=== PATIENT | female | born 1965 | race Caucasian/White ===

== ENCOUNTER 2022-10-01 15:29 | Outpatient (AMB) | payer MEDICARE, SELFPAY ==
[2022-10-01 15:38] VITALS: BP 122/80; PULSE 103; O2SAT 99; BMI 30.5
--- NOTE | 2022-10-01 15:38 | MHC.PC.OV ---
Vital Signs 10/01/22 15:38 Height 5 ft 11 in Weight 219 lb BMI 30.5 BP 122/80 Blood Pressure Location Lt brachial Position Sitting Pulse 103 H Pulse Source Pulse Oximeter Pulse Oximetry (%) 99 Oxygen Delivery Method Room Air Intake Visit Reasons: 4m F/U lumbar DDD, OA, insomnia Accompanied by: Self / Same As Patient Allergies citalopram [Celexa] Allergy (Unknown, Verified 02/01/23 16:48) Unknown ropinirole Allergy (Unknown, Verified 02/01/23 16:48) increased numbness of feet, increased back pains Medication List - Last Reconciled 02/03/23 by Bill Vega MD cyclobenzaprine 10 mg PO TID PRN 30 days oxycodone-acetaminophen 10-325 mg Take 1 to 1.5 tablets orally QD PRN for severe pain 30 days tramadol 50 mg PO BID PRN 30 days Tobacco use date assessed: 10/01/22 Dental Screening Dental Screen Date: 10/01/22 Did you have a dental visit in the last 12 months?: No Was dental information given to patient?: No HPI 4m F/U lumbar DDD, OA, insomnia HPI Details Patient comes in today for her follow up visit States that she continues to experience chronic neck and low back pain Notes that her current muscle relaxant Tizanidine does not seem to be helping as much and would like to see if she can be switched over back to Cyclobenzaprine States that she has also been experiencing increased sinus congestion and some sinus pain lately - think she might be coming down with a sinus infection Relates (+) on and off headaches but denies any fever or sore throat; denies any dizziness Denies any chest pains lately; still has on and of dyspnea, mostly with exertion States that she has also been coughing on and off since she contracted COVID a couple of months ago - cough is mostly nonproductive and states that most of other COVID related symptoms cleared lately except for her cough No nausea/vomiting, no abdominal pain No change in bowel habits noted Needs her Tramadol Rx refilled PFSH Medical History Right foot pain Disc disease, degenerative, cervical Obesity (BMI 30-39.9) Smoker Anxiety Insomnia Primary osteoarthritis of left knee Allergic rhinitis Palpitations Lumbar disc disease with radiculopathy Lumbar degenerative disc disease Surgical History No pertinent past surgical history Family History Father CVD (cardiovascular disease) Hypertension Mother Diabetes Cancer Social History Housing: House Alcohol intake: never Patient Tobacco Use Status: Current everyday Tobacco user Tobacco use type: Cigarette Cigarette Packs Per Day: 1 Cigarettes Per Day: 20 e-Cigarette/Vaping Use: Never Used Second Hand Smoke Exposure: Yes service: No Current occupational status: disabled Cognitive needs: No Hearing needs: No Vision needs: Yes (glasses) Questionnaire PHQ-9 Over the last 2 weeks, how often have you been bothered by any of the following problems? 1. Little interest or pleasure in doing things: not at all 2. Feeling down, depressed, or hopeless: not at all 3. Trouble falling or staying asleep, or sleeping too much: not at all 4. Feeling tired or having little energy: not at all 5. Poor appetite or overeating: not at all 6. Feeling bad about yourself - or that you are a failure or have let yourself or your family down: not at all 7. Trouble concentrating on things, such as reading the newspaper or watching television: not at all 8. Moving or speaking so slowly that other people could have noticed. Or the opposite - being so fidgety or restless that you have been moving around a lot more than usual: not at all 9. Thoughts that you would be better off or of hurting yourself in some way: not at all Total score: 0 Depression Screening Interpretation: Negative 05247 - PHQ-9 Billing: Yes Source: Developed by Drs. Liam Anthony, Dominique Fisher, Rusty Toribio and colleagues, with an educational fernando from [employer]. Thrive Questionnaire Date Thrive assessed: 10/01/22 I am a: Patient What is your living situation today?: I have a steady place to live Within the past 12 months, did the food you bought not last and you didn't have the money to get more?: Never true Within the past 12 months, did you worry whether your food would run out before you got money to buy more?: Never true Do you have trouble paying for medicines?: No Do you have trouble getting transportation to medical appointments?: No Do you have trouble paying your heating and electricity bill?: No Do you have trouble taking care of your child, family member or friend?: No Do you have trouble with day-to-day activities such as bathing, preparing meals, shopping, managing finances, etc.?: No Are you currently unemployed and looking for a job?: No Are you interested in more education?: No Currently or been in a relationship where the following occur: no concerns reported AUDIT C Alcohol Use Questionnaire (AUDIT-C) 1. How often do you have a drink containing alcohol?: Never 3. How often do you have six or more drinks on one occasion?: Never Total Score: 0 Score Reviewed/Action Taken: Yes ARMANDO-7 AMB Questionnaire ARMANDO-7 Date ARMANDO - 7 assessed: 10/01/22 Feeling nervous, anxious, or on edge: 0 = Not at all Not being able to stop or control worryin = Not at all Worrying too much about different things: 0 = Not at all Trouble relaxin = Not at all Being so restless that it is hard to sit still: 0 = Not at all Becoming easily annoyed or irritable: 0 = Not at all Feeling afraid as if something awful might happen: 0 = Not at all Total ARMANDO-7 score (0-4 normal; 5-9 mild; 10-14 moderate; 15-21 severe): 0 Source: Developed by Drs. Liam Anthony, Dominique Fisher, Rusty Toribio and colleagues, with an educational fernando from [employer]. Review of Systems Const Denies chills, Reports fatigue, Denies fever(s) and Reports headache(s) (on and off) ENT Denies dysphagia, Denies dizziness, Denies otalgia, Reports headache(s) (on and off), Reports nasal congestion, Reports neck pain, Denies odynophagia, Reports sinus pain and Denies sore throat Card Reports chest pain (on and off; occurring much less often than before), Denies palpitations and Reports dyspnea on exertion (mild) Resp Denies chest congestion, Reports cough (on and off, non-productive), Reports dyspnea on exertion (mild) and Denies wheezing GI Denies abdominal pain, Denies constipation, Denies dysphagia, Denies heartburn, Denies diarrhea, Denies nausea, Denies odynophagia and Denies vomiting Denies nocturia and Denies dysuria Musc Reports back pain (over the lumbar spine - chronic), Reports arthralgias (multiple joints, including left knee and ankles; left knee getting worse) and Reports neck pain Neuro Denies dizziness and Reports headache(s) (on and off) Endo Reports fatigue and Denies palpitations Aller/Immun Denies wheezing Physical exam (Primary Care) Vital Signs: Last Vital Signs Pulse 103 H 10/01/22 15:38 BP 122/80 10/01/22 15:38 Pulse Ox 99 10/01/22 15:38 Oxygen Delivery Method Room Air 10/01/22 15:38 BMI result Body Mass Index 30.5 Tobacco/Smoking Status: Tobacco use Status Tobacco use date assessed 10/01/22 10/01/22 15:45 Patient Tobacco Use Status Current everyday Tobacco 10/01/22 15:45 Tobacco use type Cigarette 10/01/22 15:45 e-Cigarette/Vaping Use Never Used 10/01/22 15:45 PHQ-9: PHQ-9 Score PHQ-9: Total score 0 10/01/22 16:20 Depression Screening Interpretation: Negative Thrive Assessment: Date of Thrive Assessment Date Thrive assessed 10/01/22 10/01/22 15:45 Currently or been in a relationship where the following occur: no concerns reported Const General: no acute distress and alert HENMT Ears: TM's normal bilaterally and EAC's normal Face and sinus: Yes sinus tenderness (bilaterally) Throat: Yes posterior oropharynx normal and Yes tonsils normal (no TP congestion) Neck Neck: Yes no lymphadenopathy and Yes tender Resp Auscultation: no crackles, no rales, rhonchi (scattered bilaterally) and no wheezes Cardio Rate: regular rate Rhythm: regular rhythm Heart sounds: no murmurs GI Palpation (GI): Soft to palpation, nontender and No hepatosplenomegaly present Auscultation: normal bowel sounds Back/Spine/Pelvis Cervical Spine: Cervical spine tenderness Thoracic/Lumbar Spine: lumbar spinal tenderness Skin Rashes: no rashes Extrem General: Yes no clubbing, cyanosis or edema Left upper extremity: shoulder/upper arm Details: tenderness Location: of the A-C joint Right lower extremity: hip/thigh Details: tenderness Location: of the hip Left lower extremity: knee Details: tenderness (increasing) Assessment and Plan Assessment & Plan (1) Sinusitis: Qualifiers: Chronicity: acute Recurrence: non-recurrent Sinusitis location: unspecified location Qualified Code(s): J01.90 - Acute sinusitis, unspecified Plan: Will send patient for sinus x-rays LAKESHIA for further evaluation Advised that if her x-rays show findings suggestive of chronic sinusitis, will start her on empiric Abx Tx for at least 10 to 14 days (2) Lumbar disc disease with radiculopathy: Code(s): M51.16 - Intervertebral disc disorders with radiculopathy, lumbar region Plan: Reinforced activity and weight-lifting restrictions Continue Tramadol 50 mg BID PRN (Rx refilled) and Oxycodone-Acetaminophen 5-325 mg 1 to 1.5 tablets once a day only as needed for increased pain (3) Disc disease, degenerative, cervical: Code(s): M50.30 - Other cervical disc degeneration, unspecified cervical region Plan: Will switch her back from Tizanidine to Cyclobenzaprine 10 mg TID PRN (4) Primary osteoarthritis of left knee: Code(s): M17.12 - Unilateral primary osteoarthritis, left knee Plan: Has been referred to [facility] in [place], per her request, for orthopedic consultation regarding her increasing/worsening knee pain a few months ago but she has not been seen yet (5) Palpitations: Code(s): R00.2 - Palpitations Plan: Patient has been advised to see cardiology for further evaluation of her symptoms a few times in the past but she declined as she does not have any secondary insurance coverage outside of Medicare States that she still owes money to both [facility] and [facility] for some procedures and tests done over the past couple of years and is still trying to pay them off States that she will call for referral if she feels she is ready to do so but has noticed that her chest/heart symptoms seem to have subsided somewhat since her bout with COVID a couple of months ago - is not sure why (6) Allergic rhinitis: Qualifiers: Allergic rhinitis seasonality: seasonal Allergic rhinitis trigger: unspecified Qualified Code(s): J30.2 - Other seasonal allergic rhinitis Plan: Has mostly spring allergies and takes OTC allergy meds as needed (7) Insomnia: Qualifiers: Insomnia type: unspecified Qualified Code(s): G47.00 - Insomnia, unspecified Plan: Sleep hygiene reinforced (8) Anxiety: Code(s): F41.9 - Anxiety disorder, unspecified Plan: Used to take Lorazepam but states that she has been doing better lately and has not had to take her Rx in a while now (9) Smoker: Code(s): F17.200 - Nicotine dependence, unspecified, uncomplicated Plan: Counseled again on smoking cessation (10) Obesity (BMI 30-39.9): Code(s): E66.9 - Obesity, unspecified Plan: Reinforced diet/exercise as tolerated/lose weight Plan Follow up in 4 months Orders: Orders XR sinus min 3V 10/01/22 J32.9 - Chronic sinusitis, unspecified Medications: Refilled tramadol 50 mg PO BID PRN 60 tabs 0RF pain 30 days cyclobenzaprine STOP Tizanidine 10 mg PO TID PRN 90 tabs 1RF muscle spasm 30 days M50.30 - Other cervical disc degeneration, unspecified cervical region Coding Level of Care Code Est Pt Level 3 (54292) Diagnoses Acute non-recurrent sinusitis, unspecified location J01.90 Chronicity: acute Recurrence: non-recurrent Sinusitis location: unspecified location Lumbar disc disease with radiculopathy M51.16 Disc disease, degenerative, cervical M50.30 Primary osteoarthritis of left knee M17.12 Palpitations R00.2 Seasonal allergic rhinitis, unspecified trigger J30.2 Allergic rhinitis seasonality: seasonal Allergic rhinitis trigger: unspecified Insomnia, unspecified type G47.00 Insomnia type: unspecified Anxiety F41.9 Smoker F17.200 Obesity (BMI 30-39.9) E66.9
== END 2022-10-01 16:31 | disposition home or self-care (01) ==
PROVIDERS: PCP Internal Medicine; Visit Provider Internal Medicine
DX: J01.90 Acute sinusitis, unspecified (principal); M51.16 Intervertebral disc disorders with radiculopathy, lumbar region; M50.30 Other cervical disc degeneration, unspecified cervical region; M17.12 Unilateral primary osteoarthritis, left knee; R00.2 Palpitations; J30.2 Other seasonal allergic rhinitis; G47.00 Insomnia, unspecified; F41.9 Anxiety disorder, unspecified; F17.200 Nicotine dependence, unspecified, uncomplicated; E66.9 Obesity, unspecified
CPT/HCPCS: 99213

== ENCOUNTER 2023-02-01 15:37 | Outpatient (AMB) | payer MEDICARE, SELFPAY ==
[2023-02-01 16:04] VITALS: BP 140/88; PULSE 110; O2SAT 98; BMI 32.5
--- NOTE | 2023-02-01 16:04 | A.OFFPC_ITS ---
Vital Signs 02/01/23 16:04 Height 5 ft 11 in Weight 233 lb 4 oz BMI 32.5 BP 140/88 H Blood Pressure Location Lt brachial Position Sitting Pulse 110 H Pulse Source Pulse Oximeter Pulse Oximetry (%) 98 Oxygen Delivery Method Room Air Intake Visit Reasons[facility] Resident Buyer Required: No Accompanied by: Self / Same As Patient Allergies citalopram [Celexa] Allergy (Unknown, Verified 02/01/23 16:48) Unknown ropinirole Allergy (Unknown, Verified 02/01/23 16:48) increased numbness of feet, increased back pains Medication List - Last Reconciled 02/01/23 by Bill Vega MD cyclobenzaprine 10 mg PO TID PRN 30 days oxycodone 1 to 1.5 tablets PO daily PRN for pain 30 days oxycodone-acetaminophen 5-325 mg 1 to 1.5 PO daily PRN; 30 days tramadol 50 mg PO BID PRN 30 days Tobacco use date assessed: 10/01/22 Dental Screening Dental Screen Date: 02/01/23 Did you have a dental visit in the last 12 months?: No Did you have a dental problem in the last 6 months where you did not have access to dental care?: No Was dental information given to patient?: Patient declined HPI [facility] f[facility] HPI Details Patient comes in today for her follow up visit States that she has been experiencing increased pain over her neck and her lower back lately and that her current pain medication regimen is no longer helping States that she has not been able to sleep much at night due to her increased pain and has been feeling more depressed lately because of this States that she ends smoking and eating more due to depression and has gained a lot of weight lately He is aware that weight gain is aggravating lower back pain further Would like to have her pain medication dosage adjusted or increased at least temporarily to try to help her get back on track Is currently taking Oxycodone-Acetaminophen 5-325 mg 1.5 tablet QD and would like to try going up to 2 tablets per dose if possible She denies any headaches or dizziness Denies any chest pains, no shortness of breath No nausea/ vomiting, no abdominal pain No change in bowel habits noted [facility] Medical History Right foot pain Disc disease, degenerative, cervical Obesity (BMI 30-39.9) Smoker Anxiety Insomnia Primary osteoarthritis of left knee Allergic rhinitis Palpitations Lumbar disc disease with radiculopathy Lumbar degenerative disc disease Surgical History No pertinent past surgical history Family History Father CVD (cardiovascular disease) Hypertension Mother Diabetes Cancer Social History Housing: House Alcohol intake: never Patient Tobacco Use Status: Current everyday Tobacco user Tobacco use type: Cigarette Cigarette Packs Per Day: 1 Cigarettes Per Day: 20 e-Cigarette/Vaping Use: Never Used Second Hand Smoke Exposure: Yes service: No Current occupational status: disabled Cognitive needs: No Hearing needs: No Vision needs: Yes (glasses) Questionnaire Thrive Questionnaire Date Thrive assessed: 10/01/22 ARMANDO-7 AMB Questionnaire ARMANDO-7 Date ARMANDO - 7 assessed: 10/01/22 Source: Developed by Drs. Liam Anthony, Dominique Fisher, Rusty Toribio and colleagues, with an educational fernando from [employer]. Review of Systems Const Reports fatigue, Denies fever(s), Denies headache(s) and Reports weight gain ENT Denies dysphagia, Denies dizziness, Denies otalgia, Denies headache(s), Reports neck pain, Denies odynophagia and Denies sore throat Card Reports chest pain (on and off; occurring much less often than before), Denies palpitations and Reports dyspnea on exertion (mild) Resp Denies chest congestion, Reports cough (on and off, non-productive), Reports dyspnea on exertion (mild) and Denies wheezing GI Denies abdominal pain, Denies constipation, Denies dysphagia, Denies heartburn, Denies diarrhea, Denies nausea, Denies odynophagia and Denies vomiting Denies nocturia and Denies dysuria Musc Reports back pain (over the lumbar spine - chronic), Reports arthralgias (multiple joints, including left knee and ankles; left knee getting worse) and Reports neck pain Skin/Breast Denies rash Neuro Denies dizziness and Denies headache(s) Psych Reports depression Endo Reports fatigue and Denies palpitations Aller/Immun Denies wheezing Physical exam (Primary Care) Vital Signs: Last Vital Signs Pulse 110 H 02/01/23 16:04 BP 140/88 H 02/01/23 16:04 Pulse Ox 98 02/01/23 16:04 Oxygen Delivery Method Room Air 02/01/23 16:04 BMI result Body Mass Index 32.5 Tobacco/Smoking Status: Tobacco use Status Tobacco use date assessed 10/01/22 02/01/23 16:10 Patient Tobacco Use Status Current everyday Tobacco 02/01/23 16:10 Tobacco use type Cigarette 02/01/23 16:10 e-Cigarette/Vaping Use Never Used 02/01/23 16:10 Thrive Assessment: Date of Thrive Assessment Date Thrive assessed 10/01/22 02/01/23 16:10 Const General: no acute distress and alert HENMT Ears: TM's normal bilaterally and EAC's normal Throat: Yes posterior oropharynx normal and Yes tonsils normal (no TP congestion) Neck Neck: Yes no lymphadenopathy and Yes tender Resp Auscultation: clear to auscultation bilaterally, no rales and no wheezes Cardio Rate: regular rate Rhythm: regular rhythm Heart sounds: no murmurs GI Palpation (GI): Soft to palpation and nontender Auscultation: normal bowel sounds Back/Spine/Pelvis Cervical Spine: Cervical spine tenderness Thoracic/Lumbar Spine: lumbar spinal tenderness Skin Rashes: no rashes Extrem General: Yes no clubbing, cyanosis or edema Left upper extremity: shoulder/upper arm Details: tenderness Location: of the A- C joint Right lower extremity: hip/thigh Details: tenderness Location: of the hip Left lower extremity: knee Details: tenderness Assessment and Plan Assessment & Plan (1) Lumbar disc disease with radiculopathy: Comment: Lumbar spine MRI done in 2019 showed multilevel lumbar spondylosis, worst at L4- L5 that has degenerative changes leading to moderate to severe canal stenosis and apparent mass effect on both traversing L5 nerve roots, greater on the right side Patient was referred to neurosurgery in 2018 but could not afford the co-pay for her visit, which was reportedly at $75 Code(s): M51.16 - Intervertebral disc disorders with radiculopathy, lumbar region Plan: Reinforced activity and weight-lifting restrictions Continue Tramadol 50 mg BID PRN Will increase her Oxycodone-Acetaminophen 5-325 mg to 10-325 mg 1 to 1.5 tablets once a day only as needed for increased pain (2) Disc disease, degenerative, cervical: Comment: Cervical spine MRI done on 10/05/2004 showed a broad-based central disc herniation along to C4-C5 level causing a slight compression of the spinal cord MRI also showed a posterior disc bulging along the C5-C6 level causing slight compression of the spinal cord and a slight narrowing of the left neural Kessler with no obvious disc herniation Code(s): M50.30 - Other cervical disc degeneration, unspecified cervical region Plan: Continue Cyclobenzaprine 10 mg TID PRN (3) Primary osteoarthritis of left knee: Comment: X-rays of the left knee done in October 2015 showed moderate degenerative changes Code(s): M17.12 - Unilateral primary osteoarthritis, left knee Plan: She was referred to [facility] in [place], per her request, for orthopedic consultation regarding her increasing/worsening knee pain a few months ago but it does not look like she ever went through with her orthopedic consultation (4) Insomnia: Code(s): G47.00 - Insomnia, unspecified Qualifiers: Insomnia type: unspecified Qualified Code(s): G47.00 - Insomnia, unspecified Plan: Sleep hygiene reinforced (5) Anxiety: Code(s): F41.9 - Anxiety disorder, unspecified Plan: Used to take Lorazepam but states that she has been doing better lately and has not had to take her Rx in a while now (6) Smoker: Code(s): F17.200 - Nicotine dependence, unspecified, uncomplicated Plan: Counseled again on smoking cessation (7) Obesity (BMI 30-39.9): Code(s): E66.9 - Obesity, unspecified Plan: Reinforced diet; exercise and weight are unrealistic due to her chronic pain but she is encouraged to try to at least shed the weight that she has gained recently Plan Follow up in 4 months Medications: New oxycodone-acetaminophen 10-325 mg Take 1 to 1.5 tablets orally QD PRN for severe pain 30 days 45 tabs 0RF severe pain Discontinued oxycodone-acetaminophen 5-325 mg Discontinued Reason: Doctor's Order 1 to 1.5 PO daily PRN; 30 days 45 tabs 0RF pain M51.16 - Intervertebral disc disorders with radiculopathy, lumbar region oxycodone Discontinued Reason: Duplicate 1 to 1.5 tablets PO daily PRN for pain 30 days 45 tabs 0RF pain Coding Level of Care Code Est Pt Level 3 (30808) Diagnoses Lumbar disc disease with radiculopathy M51.16 Disc disease, degenerative, cervical M50.30 Primary osteoarthritis of left knee M17.12 Insomnia, unspecified type G47.00 Insomnia type: unspecified Anxiety F41.9 Smoker F17.200 Obesity (BMI 30-39.9) E66.9
== END 2023-02-01 17:11 | disposition home or self-care (01) ==
PROVIDERS: PCP Internal Medicine; Visit Provider Internal Medicine
DX: M51.16 Intervertebral disc disorders with radiculopathy, lumbar region (principal); M50.30 Other cervical disc degeneration, unspecified cervical region; M17.12 Unilateral primary osteoarthritis, left knee; G47.00 Insomnia, unspecified; F41.9 Anxiety disorder, unspecified; F17.200 Nicotine dependence, unspecified, uncomplicated; E66.9 Obesity, unspecified
CPT/HCPCS: 99213

== ENCOUNTER 2023-06-04 16:46 | Outpatient (AMB) | payer MEDICARE, SELFPAY ==
[2023-06-04 16:56] VITALS: BP 122/74; PULSE 103; BMI 32.6
--- NOTE | 2023-06-04 16:56 | A.OFFPC_ITS ---
Vital Signs 06/04/23 16:56 Height 5 ft 11 in Weight 234 lb BMI 32.6 BP 122/74 Blood Pressure Location Lt brachial Position Sitting Pulse 103 H Pulse Source Pulse Oximeter Oxygen Delivery Method Room Air Intake Visit Reasons: 4 month f/u Lump Inspector Required: No Human Machine Interface Engineer: Not Required per policy Accompanied by: Self / Same As Patient Allergies citalopram [Celexa] Allergy (Unknown, Verified 10/02/23 15:52) Unknown ropinirole Allergy (Unknown, Verified 10/02/23 15:52) increased numbness of feet, increased back pains Medication List - Last Reconciled 06/04/23 by Bill Vega MD cyclobenzaprine 10 mg PO TID PRN 30 days oxycodone-acetaminophen 10-325 mg Take 1 to 1.5 tablets orally QD PRN for severe pain 30 days tramadol 50 mg PO BID PRN 30 days Tobacco use date assessed: 06/04/23 Dental Screening Dental Screen Date: 06/04/23 Did you have a dental visit in the last 12 months?: No Did you have a dental problem in the last 6 months where you did not have access to dental care?: No Was dental information given to patient?: Patient has dentist HPI 4 month f/u HPI Details Patient comes in today for her follow up visit States that she has been sleeping much better since her Percocet dosage was increased to 10-325 mg a few months ago as her chronic pains have been better controlled since States that she feels okay overall and denies any increased headaches or dizziness lately She relates (+) SANCHEZ but states that this is mostly unchanged from before - she continues to smoke as well She still has occasional chest pains but she continues to decline any work ups despite efforts to convince her to do so - states that her chest pains are not occurring as often as they used to No nausea/vomiting, no abdominal pain No change in bowel habits noted [facility] Medical History Right foot pain Disc disease, degenerative, cervical Obesity (BMI 30-39.9) Smoker Anxiety Insomnia Primary osteoarthritis of left knee Allergic rhinitis Palpitations Lumbar disc disease with radiculopathy Lumbar degenerative disc disease Surgical History No pertinent past surgical history Family History Father CVD (cardiovascular disease) Hypertension Mother Diabetes Cancer Social History Housing: House Alcohol intake: never Patient Tobacco Use Status: Current everyday Tobacco user Tobacco use type: Cigarette Cigarettes Per Day: 25 e-Cigarette/Vaping Use: Never Used Second Hand Smoke Exposure: Yes service: No Current occupational status: disabled Cognitive needs: No Hearing needs: No Vision needs: Yes (glasses) Questionnaire PHQ-9 Over the last 2 weeks, how often have you been bothered by any of the following problems? 1. Little interest or pleasure in doing things: not at all 2. Feeling down, depressed, or hopeless: not at all 3. Trouble falling or staying asleep, or sleeping too much: not at all 4. Feeling tired or having little energy: not at all 5. Poor appetite or overeating: not at all 6. Feeling bad about yourself - or that you are a failure or have let yourself or your family down: not at all 7. Trouble concentrating on things, such as reading the newspaper or watching television: not at all 8. Moving or speaking so slowly that other people could have noticed. Or the opposite - being so fidgety or restless that you have been moving around a lot more than usual: not at all 9. Thoughts that you would be better off or of hurting yourself in some way: not at all Total score: 0 Depression Screening Interpretation: Negative Depression Screening Done: Yes 51082 - PHQ-9 Billing: Yes Source: Developed by Drs. Liam Anthony, Dominique Fisher, Rusty Toribio and colleagues, with an educational fernando from [employer]. Thrive Questionnaire Date Thrive assessed: 06/04/23 I am a: Patient What is your living situation today?: I have a steady place to live Within the past 12 months, did the food you bought not last and you didn't have the money to get more?: Never true Within the past 12 months, did you worry whether your food would run out before you got money to buy more?: Never true Do you have trouble paying for medicines?: No Do you have trouble getting transportation to medical appointments?: No Do you have trouble paying your heating and electricity bill?: No Do you have trouble taking care of your child, family member or friend?: No Do you have trouble with day-to-day activities such as bathing, preparing meals, shopping, managing finances, etc.?: No Are you currently unemployed and looking for a job?: No Are you interested in more education?: No Please select the resources that you would like help with: None Currently or been in a relationship where the following occur: no concerns reported THRIVE Score: 0 AUDIT C Alcohol Use Questionnaire (AUDIT-C) 1. How often do you have a drink containing alcohol?: Never 3. How often do you have six or more drinks on one occasion?: Never Total Score: 0 Score Reviewed/Action Taken: Yes ARMANDO-7 AMB Questionnaire ARMANDO-7 Date ARMANDO - 7 assessed: 06/04/23 Feeling nervous, anxious, or on edge: 0 = Not at all Not being able to stop or control worryin = Not at all Worrying too much about different things: 0 = Not at all Trouble relaxin = Not at all Being so restless that it is hard to sit still: 0 = Not at all Becoming easily annoyed or irritable: 0 = Not at all Feeling afraid as if something awful might happen: 0 = Not at all Total ARMANDO-7 score (0-4 normal; 5-9 mild; 10-14 moderate; 15-21 severe): 0 Source: Developed by Drs. Liam Anthony, Dominique Fisher, Rusty Toribio and colleagues, with an educational fernando from [employer]. Review of Systems Const Denies chills, Reports fatigue, Denies fever(s), Denies headache(s) and Reports weight gain ENT Denies dysphagia, Denies dizziness, Denies otalgia, Denies headache(s), Reports neck pain (chronic), Denies odynophagia and Denies sore throat Card Reports chest pain (on and off, mild - see HPI), Denies palpitations and Reports dyspnea on exertion (mild) Resp Denies chest congestion, Denies cough, Reports dyspnea on exertion (mild) and Denies wheezing GI Denies abdominal pain, Denies constipation, Denies dysphagia, Denies heartburn, Denies diarrhea, Denies nausea, Denies odynophagia and Denies vomiting Denies nocturia, Denies dysuria and Denies urinary urgency Musc Reports as per HPI, Reports back pain (over the lumbar spine - chronic), Reports arthralgias (multiple joints, including left knee and ankles) and Reports neck pain (chronic) Skin/Breast Denies rash Neuro Denies dizziness and Denies headache(s) Psych Reports depression Endo Reports fatigue and Denies palpitations Aller/Immun Denies wheezing Physical exam (Primary Care) Vital Signs: Last Vital Signs Pulse 103 H 06/04/23 16:56 BP 122/74 06/04/23 16:56 Oxygen Delivery Method Room Air 06/04/23 16:56 BMI result Body Mass Index 32.6 Tobacco/Smoking Status: Tobacco use Status Tobacco use date assessed 06/04/23 06/04/23 16:58 Patient Tobacco Use Status Current everyday Tobacco 06/04/23 17:37 Tobacco use type Cigarette 06/04/23 17:37 e-Cigarette/Vaping Use Never Used 06/04/23 17:37 PHQ-9: PHQ-9 Score PHQ-9: Total score 0 06/04/23 17:39 Depression Screening Interpretation: Negative Thrive Assessment: Date of Thrive Assessment Date Thrive assessed 06/04/23 06/04/23 16:58 Currently or been in a relationship where the following occur: no concerns reported Const General: no acute distress and alert HENMT Ears: TM's normal bilaterally and EAC's normal Throat: Yes posterior oropharynx normal and Yes tonsils normal (no TP congestion) Neck Neck: Yes no lymphadenopathy and Yes tender Thyroid: Thyroid normal Resp Auscultation: clear to auscultation bilaterally, no rales and no wheezes Cardio Rate: regular rate Rhythm: regular rhythm Heart sounds: no murmurs GI Palpation (GI): Soft to palpation and nontender Auscultation: normal bowel sounds General: Yes no CVA tenderness Back/Spine/Pelvis Back: no CVA tenderness Cervical Spine: Cervical spine tenderness Thoracic/Lumbar Spine: lumbar spinal tenderness Skin Rashes: no rashes Extrem General: Yes no clubbing, cyanosis or edema Left upper extremity: shoulder/upper arm Details: tenderness Location: of the A- C joint Right lower extremity: hip/thigh Details: tenderness Location: of the hip Left lower extremity: knee Details: tenderness Assessment and Plan Assessment & Plan (1) Dyslipidemia: Code(s): E78.5 - Hyperlipidemia, unspecified Plan: Reinforced low cholesterol diet She has not had her cholesterol levels check in over 15 years and was advised to try to get her labs done prior to next follow up appt in a few months - labs ordered (2) Lumbar disc disease with radiculopathy: Comment: Lumbar spine MRI done in 2019 showed multilevel lumbar spondylosis, worst at L4- L5 that has degenerative changes leading to moderate to severe canal stenosis and apparent mass effect on both traversing L5 nerve roots, greater on the right side Patient was referred to neurosurgery in 2018 but could not afford the co-pay for her visit, which was reportedly at $75 Code(s): M51.16 - Intervertebral disc disorders with radiculopathy, lumbar region Plan: Reinforced activity and weight-lifting restrictions Continue Tramadol 50 mg BID PRN and Oxycodone-Acetaminophen 10-325 mg 1 to 1.5 tablets QD only as needed for increased pain (3) Disc disease, degenerative, cervical: Comment: Cervical spine MRI done on 10/05/2004 showed a broad-based central disc herniation along to C4-C5 level causing a slight compression of the spinal cord MRI also showed a posterior disc bulging along the C5-C6 level causing slight compression of the spinal cord and a slight narrowing of the left neural Kessler with no obvious disc herniation Code(s): M50.30 - Other cervical disc degeneration, unspecified cervical region Plan: Continue Cyclobenzaprine 10 mg TID PRN (4) Primary osteoarthritis of left knee: Comment: X-rays of the left knee done in October 2015 showed moderate degenerative changes Code(s): M17.12 - Unilateral primary osteoarthritis, left knee Plan: She was referred to [facility] in [place], per her request, for orthopedic co nsultation regarding her increasing/worsening knee pain last year but it does not look like she was ever seen by orthopedics (5) Insomnia: Code(s): G47.00 - Insomnia, unspecified Qualifiers: Insomnia type: unspecified Qualified Code(s): G47.00 - Insomnia, unspecified Plan: Sleep hygiene reinforced (6) Anxiety: Code(s): F41.9 - Anxiety disorder, unspecified Plan: She used to take Lorazepam but states that she has been doing better lately and has not had to take her Rx in a couple of years now (7) Smoker: Code(s): F17.200 - Nicotine dependence, unspecified, uncomplicated Plan: Counseled again on smoking cessation (8) Obesity (BMI 30-39.9): Code(s): E66.9 - Obesity, unspecified Plan: Reinforced diet; exercise and weight loss are unrealistic due to her chronic pain Plan Follow up in 4 months Orders: Orders Comprehensive Met. Panel 4 Months E66.9 - Obesity, unspecified, E78.5 - Hyperlipidemia, unspecified Complete Blood Count Auto Diff 4 Months D64.9 - Anemia, unspecified, E66.9 - Obesity, unspecified, E78.5 - Hyperlipidemia, unspecified UA CC w/rflx Micro + Cult 4 Months R30.0 - Dysuria, E66.9 - Obesity, unspecified, E78.5 - Hyperlipidemia, unspecified Vitamin D 25-OH Total 4 Months E55.9 - Vitamin D deficiency, unspecified, E66.9 - Obesity, unspecified, E78.5 - Hyperlipidemia, unspecified Cholesterol 4 Months E66.9 - Obesity, unspecified, E78.5 - Hyperlipidemia, unspecified Thyroid Stimulating Hormone 4 Months R79.89 - Other specified abnormal findings of blood chemistry Free T4 (Free Thyroxine) 4 Months R79.89 - Other specified abnormal findings of blood chemistry Coding Level of Care Code Est Pt Level 4 (84389) Diagnoses Dyslipidemia E78.5 Lumbar disc disease with radiculopathy M51.16 Disc disease, degenerative, cervical M50.30 Primary osteoarthritis of left knee M17.12 Insomnia, unspecified type G47.00 Insomnia type: unspecified Anxiety F41.9 Smoker F17.200 Obesity (BMI 30-39.9) E66.9
== END 2023-06-04 17:47 | disposition home or self-care (01) ==
PROVIDERS: PCP Internal Medicine; Visit Provider Internal Medicine
DX: E78.5 Hyperlipidemia, unspecified (principal); M51.16 Intervertebral disc disorders with radiculopathy, lumbar region; M50.30 Other cervical disc degeneration, unspecified cervical region; M17.12 Unilateral primary osteoarthritis, left knee; G47.00 Insomnia, unspecified; F41.9 Anxiety disorder, unspecified; F17.200 Nicotine dependence, unspecified, uncomplicated; E66.9 Obesity, unspecified
CPT/HCPCS: 99214

== ENCOUNTER 2023-10-02 15:23 | Outpatient (AMB) | payer MEDICARE, SELFPAY ==
[2023-10-02 15:26] VITALS: BP 120/80; PULSE 111; O2SAT 98; BMI 31.8
--- NOTE | 2023-10-02 15:26 | MHC.PC.OV ---
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 Internal Required: No Accompanied by: Self / Same As Patient Allergies citalopram [Celexa] Allergy (Unknown, Verified 10/02/23 15:52) Unknown ropinirole Allergy (Unknown, Verified 10/02/23 15:52) increased numbness of feet, increased back pains Medication List - Last Reconciled 10/02/23 by Bill Vega MD cyclobenzaprine 10 mg PO TID PRN 30 days oxycodone-acetaminophen 10-325 mg Take 1 to 1.5 tablets orally QD PRN for severe pain 30 days tramadol 50 mg PO BID PRN 30 days Tobacco use date assessed: 06/04/23 Dental Screening Dental Screen Date: 06/04/23 HPI 4 months HPI Details Patient comes in today for her follow up visit States that she sprained her left ankle a few months ago but she is now still experiencing on and off pain in her ankle, especially over the lateral aspect of the ankle Notes that her left ankle would also sometimes swell up She continues to experience increased (chronic) pain as well over her neck and her lower back - states that her current meds are helping to keep her pain manageable and she will need all of her Rx refilled today Adds that she has been experiencing increased nasal and sinus congestion and recurrent sinus discomfort ever since she came down with a significant respiratory tract infection earlier this year States that she tested negative for COVID at the time She denies any fever, headaches or dizziness Denies any exertional chest pains or increased SOB No nausea/vomiting, no abdominal pain No change in bowel habits noted She still has not gotten her previously ordered labs done yet [facility] Medical History Right foot pain Disc disease, degenerative, cervical Obesity (BMI 30-39.9) Smoker Anxiety Insomnia Primary osteoarthritis of left knee Allergic rhinitis Palpitations Lumbar disc disease with radiculopathy Lumbar degenerative disc disease Surgical History No pertinent past surgical history Family History Father CVD (cardiovascular disease) Hypertension Mother Diabetes Cancer Social History Housing: House Alcohol intake: never Patient Tobacco Use Status: Current everyday Tobacco user Tobacco use type: Cigarette Cigarettes Per Day: 25 e-Cigarette/Vaping Use: Never Used Second Hand Smoke Exposure: Yes service: No Current occupational status: disabled Cognitive needs: No Hearing needs: No Vision needs: Yes (glasses) Questionnaire Thrive Questionnaire Date Thrive assessed: 06/04/23 ARMANDO-7 AMB Questionnaire ARMANDO-7 Date ARMANDO - 7 assessed: 10/02/23 Feeling nervous, anxious, or on edge: 0 = Not at all Not being able to stop or control worryin = Not at all Worrying too much about different things: 0 = Not at all Trouble relaxin = Not at all Being so restless that it is hard to sit still: 0 = Not at all Becoming easily annoyed or irritable: 0 = Not at all Feeling afraid as if something awful might happen: 0 = Not at all Total ARMANDO-7 score (0-4 normal; 5-9 mild; 10-14 moderate; 15-21 severe): 0 Source: Developed by Drs. Liam Anthony, Dominique Fisher, Rusty Toribio and colleagues, with an educational fernando from [employer]. Review of Systems Const Denies chills, Reports fatigue, Denies fever(s), Denies headache(s) and Reports weight gain ENT Reports as per HPI, Denies dysphagia, Denies dizziness, Denies otalgia, Denies headache(s), Reports nasal congestion, Reports neck pain (chronic), Denies odynophagia, Reports sinus pressure and Denies sore throat Card Denies chest pain, Denies palpitations and Reports dyspnea on exertion (mild) Resp Denies chest congestion, Reports cough (on and off, non-productive), Reports dyspnea on exertion (mild) and Denies wheezing GI Denies abdominal pain, Denies constipation, Denies dysphagia, Denies heartburn, Denies diarrhea, Denies nausea, Denies odynophagia and Denies vomiting Denies nocturia, Denies dysuria and Denies urinary urgency Musc Reports as per HPI, Reports back pain (over the lumbar spine - chronic), Reports arthralgias (multiple joints, including left knee and ankles) and Reports neck pain (chronic) Skin/Breast Denies rash Neuro Denies dizziness and Denies headache(s) Psych Reports depression Endo Reports fatigue and Denies palpitations Aller/Immun Denies wheezing Physical exam (Primary Care) Vital Signs: Last Vital Signs Pulse 111 H 10/02/23 15:26 BP 120/80 10/02/23 15:26 Pulse Ox 98 10/02/23 15:26 Oxygen Delivery Method Room Air 10/02/23 15:26 BMI result Body Mass Index 31.8 Tobacco/Smoking Status: Tobacco use Status Tobacco use date assessed 06/04/23 10/02/23 15:31 Patient Tobacco Use Status Current everyday Tobacco 10/02/23 15:31 Tobacco use type Cigarette 10/02/23 15:31 e-Cigarette/Vaping Use Never Used 10/02/23 15:31 Thrive Assessment: Date of Thrive Assessment Date Thrive assessed 06/04/23 10/02/23 15:31 Const General: no acute distress and alert HENMT Ears: TM's normal bilaterally and EAC's normal Face and sinus: Yes sinus tenderness (bilateral) Throat: Yes posterior oropharynx normal and Yes tonsils normal (no TP congestion) Neck Neck: Yes no lymphadenopathy and Yes tender Thyroid: Thyroid normal Resp Auscultation: clear to auscultation bilaterally, no rales and no wheezes Cardio Rate: regular rate Rhythm: regular rhythm Heart sounds: no murmurs GI Palpation (GI): Soft to palpation and nontender Auscultation: normal bowel sounds General: Yes no CVA tenderness Back/Spine/Pelvis Back: no CVA tenderness Cervical Spine: Cervical spine tenderness Thoracic/Lumbar Spine: lumbar spinal tenderness Skin Rashes: no rashes Extrem General: Yes no clubbing, cyanosis or edema Left upper extremity: shoulder/upper arm Details: tenderness Location: of the A-C joint Right lower extremity: hip/thigh Details: tenderness Location: of the hip Left lower extremity: knee Details: tenderness and ankle Details: tenderness Location: of the lateral malleolus and swelling Details: laterally Assessment and Plan Assessment & Plan (1) Pain and swelling of left ankle: Code(s): M25.572 - Pain in left ankle and joints of left foot; M25.472 - Effusion, left ankle Plan: Will send patient for x-rays of the left ankle LAKESHIA for further evaluation and to r/o ankle fracture, especially since her symptoms appear to be localized more to the lateral malleolar area, which technically is the weakest area of the ankle joint and where majority of fractures occur (2) Sinusitis: Code(s): J32.9 - Chronic sinusitis, unspecified Qualifiers: Sinusitis location: unspecified location Chronicity: acute Recurrence: non-recurrent Qualified Code(s): J01.90 - Acute sinusitis, unspecified Plan: Will start patient empirically on Amoxicillin 875 mg BID x 10 days (3) Dyslipidemia: Code(s): E78.5 - Hyperlipidemia, unspecified Plan: She has not had her cholesterol levels check in over 15 years and was advised to try to get her labs done prior to today at her last visit but she has not yet been able to do so Is advised that she can get these done at the same time when she goes for her ankle x-rays and that she can get these done up at [facility], where it is closer to home for her, if she finds coming down here to [facility] tests done too far and difficult for her Her previous lab orders are printed out and handed to patient (4) Lumbar disc disease with radiculopathy: Comment: Lumbar spine MRI done in 2019 showed multilevel lumbar spondylosis, worst at L4-L5 that has degenerative changes leading to moderate to severe canal stenosis and apparent mass effect on both traversing L5 nerve roots, greater on the right side Patient was referred to neurosurgery in 2018 but could not afford the co-pay for her visit, which was reportedly at $75 Code(s): M51.16 - Intervertebral disc disorders with radiculopathy, lumbar region Plan: Reinforced activity and weight-lifting restrictions Continue Tramadol 50 mg BID PRN and Oxycodone-Acetaminophen 10-325 mg 1 to 1.5 tablets QD only as needed for increased pain - Rx refilled (5) Disc disease, degenerative, cervical: Comment: Cervical spine MRI done on 10/05/2004 showed a broad-based central disc herniation along to C4-C5 level causing a slight compression of the spinal cord MRI also showed a posterior disc bulging along the C5-C6 level causing slight compression of the spinal cord and a slight narrowing of the left neural Kessler with no obvious disc herniation Code(s): M50.30 - Other cervical disc degeneration, unspecified cervical region Plan: Continue Cyclobenzaprine 10 mg TID PRN (6) Primary osteoarthritis of left knee: Comment: X-rays of the left knee done in October 2015 showed moderate degenerative changes Code(s): M17.12 - Unilateral primary osteoarthritis, left knee Plan: She was referred to [facility] in [place], per her request, for orthopedic consultation regarding her increasing/worsening knee pain last year but it does not look like she was ever seen by orthopedics (7) Insomnia: Code(s): G47.00 - Insomnia, unspecified Qualifiers: Insomnia type: unspecified Qualified Code(s): G47.00 - Insomnia, unspecified Plan: Sleep hygiene reinforced (8) Anxiety: Code(s): F41.9 - Anxiety disorder, unspecified Plan: She used to take Lorazepam but states that she has been doing better lately and has not had to take her Rx in a couple of years now (9) Smoker: Code(s): F17.200 - Nicotine dependence, unspecified, uncomplicated Plan: Counseled again on smoking cessation (10) Obesity (BMI 30-39.9): Code(s): E66.9 - Obesity, unspecified Plan: Reinforced diet; exercise and weight loss are unrealistic due to her chronic pain Plan Follow up in 4 months Orders: Orders XR ankle LT min 3V 10/02/23 M25.472 - Effusion, left ankle, M25.572 - Pain in left ankle and joints of left foot Medications: New amoxicillin 875 mg PO BID 10 days 20 tabs 0RF Refilled oxycodone-acetaminophen 10-325 mg Take 1 to 1.5 tablets orally QD PRN for severe pain 30 days 45 tabs 0RF severe pain tramadol 50 mg PO BID 30 days PRN 60 tabs 0RF pain cyclobenzaprine STOP Tizanidine 10 mg PO TID 30 days PRN 90 tabs 1RF muscle spasm M50.30 - Other cervical disc degeneration, unspecified cervical region Coding Level of Care Code Est Pt Level 4 (90052) Diagnoses Pain and swelling of left ankle M25.572; M25.472 Acute non-recurrent sinusitis, unspecified location J01.90 Sinusitis location: unspecified location Chronicity: acute Recurrence: non-recurrent Dyslipidemia E78.5 Lumbar disc disease with radiculopathy M51.16 Disc disease, degenerative, cervical M50.30 Primary osteoarthritis of left knee M17.12 Insomnia, unspecified type G47.00 Insomnia type: unspecified Anxiety F41.9 Smoker F17.200 Obesity (BMI 30-39.9) E66.9
== END 2023-10-02 16:08 | disposition home or self-care (01) ==
PROVIDERS: PCP Internal Medicine; Visit Provider Internal Medicine
DX: M25.572 Pain in left ankle and joints of left foot (principal); M25.472 Effusion, left ankle; J01.90 Acute sinusitis, unspecified; E78.5 Hyperlipidemia, unspecified; M51.16 Intervertebral disc disorders with radiculopathy, lumbar region; M50.30 Other cervical disc degeneration, unspecified cervical region; M17.12 Unilateral primary osteoarthritis, left knee; G47.00 Insomnia, unspecified; F41.9 Anxiety disorder, unspecified; F17.200 Nicotine dependence, unspecified, uncomplicated; E66.9 Obesity, unspecified
CPT/HCPCS: 99214

== ENCOUNTER 2024-02-05 15:24 | Outpatient (AMB) | payer MEDICARE, SELFPAY ==
[2024-02-05 15:25] VITALS: BP 118/84; PULSE 113; O2SAT 97; BMI 31.7
--- NOTE | 2024-02-05 15:25 | MHC.PC.OV ---
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 Required: No Accompanied by: Self / Same As Patient Allergies citalopram [Celexa] Allergy (Unknown, Verified 02/05/24 16:00) Unknown ropinirole Allergy (Unknown, Verified 02/05/24 16:00) increased numbness of feet, increased back pains Medication List - Last Reconciled 02/05/24 by Bill Vega MD cyclobenzaprine 10 mg PO TID PRN 30 days oxycodone-acetaminophen 10-325 mg Take 1 to 1.5 tablets orally QD PRN for severe pain 30 days tramadol 50 mg PO BID PRN 30 days Tobacco use date assessed: 02/05/24 Dental Screening Dental Screen Date: 02/05/24 Did you have a dental visit in the last 12 months?: No Did you have a dental problem in the last 6 months where you did not have access to dental care?: No Was dental information given to patient?: No HPI 4mof\u HPI Details Patient comes in today for her follow up visit Relates increased pain in her neck and her lower back for about a month now She sometimes does not sleep well at night due to the increased pain Her left ankle, which was bothering her a lot for a while, is feeling much better now Notes that her sinuses have been congested and she relates (+) on and off headaches for the past month and she actually had a bloody nasa. discharge about 3 weeks ago She denies any fever or sore throat; denies any dizziness Denies any chest pains, no increased SOB No nausea/vomiting, no abdominal pain No change in bowel habits noted [facility] Medical History (Updated 02/09/24 @ 16:54 by Bill Vega MD) Dyslipidemia Right foot pain Disc disease, degenerative, cervical Obesity (BMI 30-39.9) Smoker Anxiety Insomnia Primary osteoarthritis of left knee Allergic rhinitis Palpitations Lumbar disc disease with radiculopathy Lumbar degenerative disc disease Surgical History No pertinent past surgical history Family History Father CVD (cardiovascular disease) Hypertension Mother Diabetes Cancer Social History Housing: House Alcohol intake: never Patient Tobacco Use Status: Current everyday Tobacco user Tobacco use type: Cigarette Cigarettes Per Day: 25 e-Cigarette/Vaping Use: Never Used Second Hand Smoke Exposure: Yes service: No Current occupational status: disabled Cognitive needs: No Hearing needs: No Vision needs: Yes (glasses) Questionnaire PHQ-9 Over the last 2 weeks, how often have you been bothered by any of the following problems? 1. Little interest or pleasure in doing things: not at all 2. Feeling down, depressed, or hopeless: not at all 3. Trouble falling or staying asleep, or sleeping too much: not at all 4. Feeling tired or having little energy: not at all 5. Poor appetite or overeating: not at all 6. Feeling bad about yourself - or that you are a failure or have let yourself or your family down: not at all 7. Trouble concentrating on things, such as reading the newspaper or watching television: not at all 8. Moving or speaking so slowly that other people could have noticed. Or the opposite - being so fidgety or restless that you have been moving around a lot more than usual: not at all 9. Thoughts that you would be better off or of hurting yourself in some way: not at all Total score: 0 Depression Screening Interpretation: Negative Depression Screening Done: Yes 62073 - PHQ-9 Billing: Yes Source: Developed by Drs. Liam Anthony, Dominique Fisher, Rusty Toribio and colleagues, with an educational fernando from [email or web address]. Thrive Questionnaire Date Thrive assessed: 02/05/24 I am a: Patient What is your living situation today?: I have a steady place to live Within the past 12 months, did the food you bought not last and you didn't have the money to get more?: Never true Within the past 12 months, did you worry whether your food would run out before you got money to buy more?: Never true Do you have trouble paying for medicines?: No Do you have trouble getting transportation to medical appointments?: No Do you have trouble paying your heating and electricity bill?: No Do you have trouble taking care of your child, family member or friend?: No Do you have trouble with day-to-day activities such as bathing, preparing meals, shopping, managing finances, etc.?: No Are you currently unemployed and looking for a job?: No Are you interested in more education?: No Please select the resources that you would like help with: None Currently or been in a relationship where the following occur: No concerns reported THRIVE Score: 0 AUDIT C Alcohol Use Questionnaire (AUDIT-C) 1. How often do you have a drink containing alcohol?: Never 3. How often do you have six or more drinks on one occasion?: Never Total Score: 0 Score Reviewed/Action Taken: Yes ARMANDO-7 AMB Questionnaire ARMANDO-7 Date ARMANDO - 7 assessed: 02/05/24 Feeling nervous, anxious, or on edge: 0 = Not at all Not being able to stop or control worryin = Not at all Worrying too much about different things: 0 = Not at all Trouble relaxin = Not at all Being so restless that it is hard to sit still: 0 = Not at all Becoming easily annoyed or irritable: 0 = Not at all Feeling afraid as if something awful might happen: 0 = Not at all Total ARMANDO-7 score (0-4 normal; 5-9 mild; 10-14 moderate; 15-21 severe): 0 Source: Developed by Drs. Liam Anthony, Dominique Fisher, Rusty Toribio and colleagues, with an educational fernando from [email or web address]. Review of Systems Const Denies chills, Reports fatigue, Denies fever(s) and Reports headache(s) (recurrent lately) ENT Denies dysphagia, Denies dizziness, Denies otalgia, Reports headache(s) (recurrent lately), Reports nasal congestion, Reports nasal discharge, Reports neck pain (chronic - increased lately), Denies odynophagia, Reports sinus pressure and Denies sore throat Card Denies chest pain, Denies palpitations and Reports dyspnea on exertion (mild) Resp Denies chest congestion, Reports cough (on and off, non-productive), Reports dyspnea on exertion (mild) and Denies wheezing GI Denies abdominal pain, Denies constipation, Denies dysphagia, Denies heartburn, Denies diarrhea, Denies nausea, Denies odynophagia and Denies vomiting Denies nocturia, Denies dysuria and Denies urinary urgency Musc Reports back pain (over the lumbar spine - chronic; increasing lately), Reports arthralgias (multiple joints, including left knee and ankles) and Reports neck pain (chronic - increased lately) Skin/Breast Denies rash Neuro Denies dizziness and Reports headache(s) (recurrent lately) Psych Reports depression Endo Reports fatigue and Denies palpitations Aller/Immun Denies wheezing Physical exam (Primary Care) Vital Signs: Last Vital Signs Pulse 113 H 02/05/24 15:25 BP 118/84 02/05/24 15:25 Pulse Ox 97 02/05/24 15:25 Oxygen Delivery Method Room Air 02/05/24 15:25 BMI result Body Mass Index 31.7 Tobacco/Smoking Status: Tobacco use Status Tobacco use date assessed 02/05/24 02/05/24 15:32 Patient Tobacco Use Status Current everyday Tobacco 02/05/24 15:32 Tobacco use type Cigarette 02/05/24 15:32 e-Cigarette/Vaping Use Never Used 02/05/24 15:32 PHQ-9: PHQ-9 Score PHQ-9: Total score 0 02/05/24 16:09 Depression Screening Interpretation: Negative Thrive Assessment: Date of Thrive Assessment Date Thrive assessed 02/05/24 02/05/24 15:32 Currently or been in a relationship where the following occur: No concerns reported Const General: no acute distress and alert HENMT Ears: TM's normal bilaterally and EAC's normal Face and sinus: Yes sinus tenderness (bilateral) Throat: Yes posterior oropharynx normal and Yes tonsils normal (no TP congestion) Neck Neck: Yes no lymphadenopathy and Yes tender Thyroid: Thyroid normal Resp Auscultation: clear to auscultation bilaterally, no rales and no wheezes Cardio Rate: regular rate Rhythm: regular rhythm Heart sounds: no murmurs GI Palpation (GI): Soft to palpation and nontender Auscultation: normal bowel sounds General: Yes no CVA tenderness Back/Spine/Pelvis Back: no CVA tenderness Cervical Spine: Cervical spine tenderness Thoracic/Lumbar Spine: lumbar spinal tenderness Skin Rashes: no rashes Extrem General: Yes no clubbing, cyanosis or edema Left upper extremity: shoulder/upper arm Details: tenderness Location: of the A-C joint Right lower extremity: hip/thigh Details: tenderness Location: of the hip Left lower extremity: knee Details: tenderness Coding Level of Care Code Est Pt Level 3 (48647) Diagnoses Acute non-recurrent sinusitis, unspecified location J01.90 Chronicity: acute Recurrence: non-recurrent Sinusitis location: unspecified location Lumbar disc disease with radiculopathy M51.16 Disc disease, degenerative, cervical M50.30 Primary osteoarthritis of left knee M17.12 Dyslipidemia E78.5 Insomnia, unspecified type G47.00 Insomnia type: unspecified Anxiety F41.9 Smoker F17.200 Obesity (BMI 30-39.9) E66.9 Assessment & Plan Assessment & Plan (1) Sinusitis: Code(s): J32.9 - Chronic sinusitis, unspecified Category: Medical Qualifiers: Chronicity: acute Recurrence: non-recurrent Sinusitis location: unspecified location Qualified Code(s): J01.90 - Acute sinusitis, unspecified Plan: Will start patient again on Amoxicillin 875 mg BID x 10 days (2) Lumbar disc disease with radiculopathy: Comment: Lumbar spine MRI done in 2019 showed multilevel lumbar spondylosis, worst at L4-L5 that has degenerative changes leading to moderate to severe canal stenosis and apparent mass effect on both traversing L5 nerve roots, greater on the right side Patient was referred to neurosurgery in 2018 but could not afford the co-pay for her visit, which was reportedly at $75 Code(s): M51.16 - Intervertebral disc disorders with radiculopathy, lumbar region Category: Medical Plan: Reinforced activity and weight-lifting restrictions Continue Tramadol 50 mg BID PRN and Oxycodone-Acetaminophen 10-325 mg 1 to 1.5 tablets QD only as needed for increased pain Patient currently still has NO secondary insurance coverage so she prefers not to do anything else except continue on her current regimen/management at this time (3) Disc disease, degenerative, cervical: Comment: Cervical spine MRI done on 10/05/2004 showed a broad-based central disc herniation along to C4-C5 level causing a slight compression of the spinal cord MRI also showed a posterior disc bulging along the C5-C6 level causing slight compression of the spinal cord and a slight narrowing of the left neural foramen with no obvious disc herniation Code(s): M50.30 - Other cervical disc degeneration, unspecified cervical region Category: Medical Plan: Continue Cyclobenzaprine 10 mg TID PRN (4) Primary osteoarthritis of left knee: Comment: X-rays of the left knee done in October 2015 showed moderate degenerative changes Code(s): M17.12 - Unilateral primary osteoarthritis, left knee Category: Medical Plan: She was previously referred to [facility] in [place], per her request, for orthopedic consultation regarding her increasing/worsening knee pain last year but she was never seen by orthopedics (5) Dyslipidemia: Code(s): E78.5 - Hyperlipidemia, unspecified Category: Medical Plan: Reinforced low cholesterol diet She has not had her cholesterol levels checked in over 15 years and she has been advised multiple times to try to get her labs done as soon as she can but she has not yet been able to do so (6) Insomnia: Code(s): G47.00 - Insomnia, unspecified Category: Medical Qualifiers: Insomnia type: unspecified Qualified Code(s): G47.00 - Insomnia, unspecified Plan: Sleep hygiene reinforced (7) Anxiety: Code(s): F41.9 - Anxiety disorder, unspecified Category: Medical Plan: She used to take Lorazepam but states that she has been doing better lately and has not had to take her Rx in a couple of years now (8) Smoker: Code(s): F17.200 - Nicotine dependence, unspecified, uncomplicated Category: Social Hx Plan: She is counseled again on smoking cessation (9) Obesity (BMI 30-39.9): Code(s): E66.9 - Obesity, unspecified Category: Medical Plan: Reinforced diet; exercise and weight loss are unrealistic due to her chronic pain Plan Follow up in 4 months Medications: Refilled amoxicillin 875 mg PO BID 10 days 20 tabs 0RF
== END 2024-02-05 16:20 | disposition home or self-care (01) ==
LOC: HO.HMCH 15:24
PROVIDERS: PCP Internal Medicine; Visit Provider Internal Medicine
DX: J01.90 Acute sinusitis, unspecified (principal); M51.16 Intervertebral disc disorders with radiculopathy, lumbar region; E66.9 Obesity, unspecified; Z68.31 Body mass index [BMI] 31.0-31.9, adult; M50.30 Other cervical disc degeneration, unspecified cervical region; F17.200 Nicotine dependence, unspecified, uncomplicated; E78.5 Hyperlipidemia, unspecified; M17.12 Unilateral primary osteoarthritis, left knee; G47.00 Insomnia, unspecified; F41.9 Anxiety disorder, unspecified

== ENCOUNTER → 2024-02-05 15:24 | Outpatient (BNVA) | payer MEDICARE, SELFPAY | PROVIDERS: PCP Internal Medicine; Visit Provider Internal Medicine | DX: J01.90 Acute sinusitis, unspecified (principal); M51.16 Intervertebral disc disorders with radiculopathy, lumbar region; M50.30 Other cervical disc degeneration, unspecified cervical region; M17.12 Unilateral primary osteoarthritis, left knee; E78.5 Hyperlipidemia, unspecified; G47.00 Insomnia, unspecified; F41.9 Anxiety disorder, unspecified; E66.9 Obesity, unspecified; F17.200 Nicotine dependence, unspecified, uncomplicated | CPT/HCPCS: 99212 ==

== ENCOUNTER 2024-06-08 15:14 | Outpatient (AMB) | payer MEDICARE, SELFPAY ==
[2024-06-08 15:47] VITALS: BP 126/82; PULSE 87; O2SAT 99; BMI 31.5
--- NOTE | 2024-06-08 15:47 | A.OFFPC_ITS ---
Vital Signs 06/08/24 15:47 Height 5 ft 11 in Weight 226 lb 2 oz BMI 31.5 BP 126/82 Blood Pressure Location Lt brachial Position Sitting Pulse 87 Pulse Source Pulse Oximeter Pulse Oximetry (%) 99 Oxygen Delivery Method Room Air Intake Visit Reasons: 4 Months f/u [employer] Required: No Accompanied by: Self / Same As Patient Allergies citalopram [Celexa] Allergy (Unknown, Verified 06/08/24 16:11) Unknown ropinirole Allergy (Unknown, Verified 06/08/24 16:11) increased numbness of feet, increased back pains Medication List - Last Reconciled 06/08/24 by Bill Vega MD amoxicillin 875 mg PO BID 10 days cyclobenzaprine 10 mg PO TID PRN 30 days oxycodone-acetaminophen 10-325 mg Take 1 to 1.5 tablets orally QD PRN for severe pain 30 days tramadol 50 mg PO BID PRN 30 days Tobacco use date assessed: 06/08/24 Dental Screening Dental Screen Date: 06/08/24 Did you have a dental visit in the last 12 months?: No Did you have a dental problem in the last 6 months where you did not have access to dental care?: No Was dental information given to patient?: No HPI 4 Months f/u HPI Details Patient comes in today for her follow up visit Relates that she went to the ER at [facility] up in [place] a few weeks ago on 05/04/2024 when she started experiencing persistent episodes of recurrent palpitations accompanied by dizziness that lasted for a few hours Recalls that she was also feeling shaky and nervous at the time but did not experience any chest pains She subsequently went to the ER for further evaluation, we will workups revealed occasional PVCs noticed on her heart monitor although her EKG done at the time did not show any acute changes - was read as normal sinus rhythm at 94 beats per minute, with no acute ischemic changes and normal intervals Her cardiac markers came back normal, and the remainder of her labs were reportedly normal as well Patient was reassured of the benign nature of her PVCs but as she appears to be symptomatic, was advised that these needs to be further evaluated and that she should check back with her PCP regarding these Patient states that since her ER visit, she continues to experience recurrent episodes as above - on and off bouts of palpitations with transient dizziness and weakness at times She denies any exertional chest pains or increased shortness of breath She denies any headaches No nausea/vomiting, no abdominal pain No change in bowel habits noted She is requesting to see the cuff setter lockstitch that her brother is currently seeing up in [place] (Dr. Juancarlos Hudson) for cardiology evaluation [facility] Medical History (Updated 06/08/24 @ 16:32 by Bill Vega MD) Dyslipidemia Right foot pain Disc disease, degenerative, cervical Obesity (BMI 30-39.9) Smoker Anxiety Insomnia Primary osteoarthritis of left knee Allergic rhinitis Palpitations Lumbar disc disease with radiculopathy Lumbar degenerative disc disease Surgical History No pertinent past surgical history Family History Father CVD (cardiovascular disease) Hypertension Mother Diabetes Cancer Social History Housing: House Alcohol intake: never Patient Tobacco Use Status: Current everyday Tobacco user Tobacco use type: Cigarette Cigarettes Per Day: 25 e-Cigarette/Vaping Use: Never Used Second Hand Smoke Exposure: Yes service: No Current occupational status: disabled Cognitive needs: No Hearing needs: No Vision needs: Yes (glasses) Questionnaire PHQ-9 Over the last 2 weeks, how often have you been bothered by any of the following problems? 1. Little interest or pleasure in doing things: not at all 2. Feeling down, depressed, or hopeless: not at all 3. Trouble falling or staying asleep, or sleeping too much: not at all 4. Feeling tired or having little energy: not at all 5. Poor appetite or overeating: not at all 6. Feeling bad about yourself - or that you are a failure or have let yourself or your family down: not at all 7. Trouble concentrating on things, such as reading the newspaper or watching television: not at all 8. Moving or speaking so slowly that other people could have noticed. Or the opposite - being so fidgety or restless that you have been moving around a lot more than usual: not at all 9. Thoughts that you would be better off or of hurting yourself in some way: not at all Total score: 0 Depression Screening Interpretation: Negative Depression Screening Done: Yes 84971 - PHQ-9 Billing: Yes Source: Developed by Drs. Liam Anthony, Dominique Fisher, Rusty Toribio and colleagues, with an educational fernando from [employer]. Thrive Questionnaire Date Thrive assessed: 06/08/24 I am a: Patient What is your living situation today?: I have a steady place to live Within the past 12 months, did the food you bought not last and you didn't have the money to get more?: Never true Within the past 12 months, did you worry whether your food would run out before you got money to buy more?: Never true Do you have trouble paying for medicines?: No Do you have trouble getting transportation to medical appointments?: No Do you have trouble paying your heating and electricity bill?: No Do you have trouble taking care of your child, family member or friend?: No Do you have trouble with day-to-day activities such as bathing, preparing meals, shopping, managing finances, etc.?: No Are you currently unemployed and looking for a job?: No Are you interested in more education?: No Please select the resources that you would like help with: None Currently or been in a relationship where the following occur: No concerns reported THRIVE Score: 0 AUDIT C Alcohol Use Questionnaire (AUDIT-C) 1. How often do you have a drink containing alcohol?: Never 3. How often do you have six or more drinks on one occasion?: Never Total Score: 0 Score Reviewed/Action Taken: Yes ARMANDO-7 AMB Questionnaire ARMANDO-7 Date ARMANDO - 7 assessed: 06/08/24 Feeling nervous, anxious, or on edge: 0 = Not at all Not being able to stop or control worryin = Not at all Worrying too much about different things: 0 = Not at all Trouble relaxin = Not at all Being so restless that it is hard to sit still: 0 = Not at all Becoming easily annoyed or irritable: 0 = Not at all Feeling afraid as if something awful might happen: 0 = Not at all Total ARMANDO-7 score (0-4 normal; 5-9 mild; 10-14 moderate; 15-21 severe): 0 Source: Developed by Juan Gonzalezet B.W. Phillip, Rusty Toribio and colleagues, with an educational fernando from [employer]. Review of Systems Const Denies chills, Denies fatigue, Denies fever(s) and Denies headache(s) ENT Denies dysphagia, Reports dizziness (on and off, associated with her bouts of palpitations), Denies otalgia, Denies headache(s), Reports neck pain (chronic), Denies odynophagia and Denies sore throat Card Denies chest pain, Reports palpitations (recurrent bouts of palpitations (see HPI)) and Reports dyspnea on exertion (mild) Resp Denies chest congestion, Denies cough and Reports dyspnea on exertion (mild) GI Denies abdominal pain, Denies constipation, Denies dysphagia, Denies heartburn, Denies diarrhea, Denies nausea, Denies odynophagia and Denies vomiting Denies nocturia, Denies dysuria and Denies urinary urgency Musc Reports back pain (over the lumbar spine - chronic), Reports arthralgias (involving multiple joints, including left knee and ankles) and Reports neck pain (chronic) Skin/Breast Denies rash Neuro Reports dizziness (on and off, associated with her bouts of palpitations) and Denies headache(s) Psych Reports anxiety and Reports depression Endo Denies fatigue and Reports palpitations (recurrent bouts of palpitations (see HPI)) Physical exam (Primary Care) Vital Signs: Last Vital Signs Pulse 87 06/08/24 15:47 BP 126/82 06/08/24 15:47 Pulse Ox 99 06/08/24 15:47 Oxygen Delivery Method Room Air 06/08/24 15:47 BMI result Body Mass Index 31.5 Tobacco/Smoking Status: Tobacco use Status Tobacco use date assessed 06/08/24 06/08/24 15:57 Patient Tobacco Use Status Current everyday Tobacco 06/08/24 15:48 Tobacco use type Cigarette 06/08/24 15:48 e-Cigarette/Vaping Use Never Used 06/08/24 15:48 PHQ-9: PHQ-9 Score PHQ-9: Total score 0 06/08/24 16:12 Depression Screening Interpretation: Negative Thrive Assessment: Date of Thrive Assessment Date Thrive assessed 06/08/24 06/08/24 15:57 Currently or been in a relationship where the following occur: No concerns reported Const General: no acute distress and alert HENMT Ears: TM's normal bilaterally and EAC's normal Throat: Yes posterior oropharynx normal and Yes tonsils normal (no TP congestion) Neck Neck: No lymphadenopathy and Yes tender Thyroid: Thyroid normal Resp Auscultation: clear to auscultation bilaterally, no rales and no wheezes Cardio Rate: regular rate Rhythm: abnormal rhythm (occasionally) with ectopic beats Heart sounds: no murmurs GI Palpation (GI): Soft to palpation and nontender Auscultation: normal bowel sounds General: Yes no CVA tenderness Back/Spine/Pelvis Back: no CVA tenderness Cervical Spine: Cervical spine tenderness Thoracic/Lumbar Spine: lumbar spinal tenderness Skin Rashes: no rashes Extrem General: Yes no clubbing, cyanosis or edema Left upper extremity: shoulder/upper arm Details: tenderness Location: of the A- C joint Right lower extremity: hip/thigh Details: tenderness Location: of the hip Left lower extremity: knee Details: tenderness Coding Level of Care Code Est Pt Level 4 (96607) Diagnoses Symptomatic PVCs I49.3 Lumbar disc disease with radiculopathy M51.16 Disc disease, degenerative, cervical M50.30 Primary osteoarthritis of left knee M17.12 Insomnia, unspecified type G47.00 Insomnia type: unspecified Anxiety F41.9 Smoker F17.200 Obesity (BMI 30-39.9) E66.9 Additional Codes PHQ-9 - 34067 - PHQ-9 Billing: Yes ([id number]) Assessment & Plan Assessment & Plan (1) Symptomatic PVCs: Code(s): I49.3 - Ventricular premature depolarization Category: Medical Plan: Patient went to the ER up at [facility] in [place] on 05/04/2024 due to recurrent episodes of palpitations associated with dizziness She was noted to have (+) occasional PVCs on her heart monitor although her EKG done at the time did not show any acute changes - EKG was read as normal sinus rhythm at 94 beats per minute, with no acute ischemic changes and normal intervals Her cardiac enzymes reportedly came back normal, as well as the remainder of her labs done at the time As patient still does not have any secondary insurance and would like to avoid any unnecessary costs or expenses, will hold off on ordering any additional labs at this time We will try to obtain a copy of her recent labs done at [facility] for review and documentation She appears to be quite symptomatic from PVCs, will refer her (per her request) to Dr. Juancarlos Hudson [facility] for further evaluation and management Have explained to patient that PVCs are mostly benign, especially if they are asymptomatic but if they occur frequently and/or are symptomatic, then they need to be further evaluated as they can often precede some more serious arrhythmias in the future Have discussed with patient she will likely also have an echocardiogram and Holter monitor ordered by Cardiology; a cardiac event monitor may be necessary as well if her initial evaluations are unrevealing (2) Lumbar disc disease with radiculopathy: Comment: Lumbar spine MRI done in 2019 showed multilevel lumbar spondylosis, worst at L4- L5 that has degenerative changes leading to moderate to severe canal stenosis and apparent mass effect on both traversing L5 nerve roots, greater on the right side Patient was referred to neurosurgery in 2018 but could not afford the co-pay for her visit, which was reportedly at $75 Code(s): M51.16 - Intervertebral disc disorders with radiculopathy, lumbar region Category: Medical Plan: Reinforced activity and weight-lifting restrictions Continue Tramadol 50 mg BID PRN and Oxycodone-Acetaminophen 10-325 mg 1 to 1.5 tablets QD only as needed for increased pain Patient currently still has NO secondary insurance coverage so she prefers not to do anything else in terms of work ups for her low back pain except continue on her current regimen/management at this time (3) Disc disease, degenerative, cervical: Comment: Cervical spine MRI done on 10/05/2004 showed a broad-based central disc herniation along to C4-C5 level causing a slight compression of the spinal cord MRI also showed a posterior disc bulging along the C5-C6 level causing slight compression of the spinal cord and a slight narrowing of the left neural foramen with no obvious disc herniation Code(s): M50.30 - Other cervical disc degeneration, unspecified cervical region Category: Medical Plan: Continue Cyclobenzaprine 10 mg TID PRN (4) Primary osteoarthritis of left knee: Comment: X-rays of the left knee done in October 2015 showed moderate degenerative changes Code(s): M17.12 - Unilateral primary osteoarthritis, left knee Category: Medical Plan: She was previously referred to [facility] in [place], per her request, for orthopedic consultation regarding her increasing/worsening knee pain a couple of years ago but she was never seen by orthopedics (5) Insomnia: Code(s): G47.00 - Insomnia, unspecified Category: Medical Qualifiers: Insomnia type: unspecified Qualified Code(s): G47.00 - Insomnia, unspecified Plan: Sleep hygiene reinforced (6) Anxiety: Code(s): F41.9 - Anxiety disorder, unspecified Category: Medical Plan: She used to take Lorazepam but states that she has been doing better lately and has not had to take her Rx in a couple of years now (7) Smoker: Code(s): F17.200 - Nicotine dependence, unspecified, uncomplicated Category: Social Hx Plan: She is counseled again on smoking cessation, especially in light of her recent cardiac symptoms (8) Obesity (BMI 30-39.9): Code(s): E66.9 - Obesity, unspecified Category: Medical Plan: Reinforced diet; exercise and weight loss are unrealistic due to her chronic pain Plan Follow up in 3 months Orders: Referrals Cardiology Referral I49.3 - Ventricular premature depolarization, R00.2 - Palpitations
== END 2024-06-08 17:20 | disposition home or self-care (01) ==
PROVIDERS: PCP Internal Medicine; Visit Provider Internal Medicine
DX: I49.3 Ventricular premature depolarization (principal); M51.16 Intervertebral disc disorders with radiculopathy, lumbar region; M50.30 Other cervical disc degeneration, unspecified cervical region; M17.12 Unilateral primary osteoarthritis, left knee; G47.00 Insomnia, unspecified; F41.9 Anxiety disorder, unspecified; F17.200 Nicotine dependence, unspecified, uncomplicated; E66.9 Obesity, unspecified

== ENCOUNTER → 2024-06-08 15:14 | Outpatient (BNVA) | payer MEDICARE, SELFPAY | PROVIDERS: PCP Internal Medicine; Visit Provider Internal Medicine | DX: I49.3 Ventricular premature depolarization (principal); M51.16 Intervertebral disc disorders with radiculopathy, lumbar region; M50.30 Other cervical disc degeneration, unspecified cervical region; M17.12 Unilateral primary osteoarthritis, left knee; G47.00 Insomnia, unspecified; F41.9 Anxiety disorder, unspecified; E66.9 Obesity, unspecified; Z68.31 Body mass index [BMI] 31.0-31.9, adult; F17.200 Nicotine dependence, unspecified, uncomplicated; Z71.6 Tobacco abuse counseling; Z71.3 Dietary counseling and surveillance | CPT/HCPCS: 96127; 99212 ==

== ENCOUNTER 2024-11-19 10:05 | Outpatient (AMB) | payer MEDICARE, SELFPAY ==
[2024-11-19 10:08] VITALS: BP 116/86; BMI 31.1
--- NOTE | 2024-11-19 10:08 | MHC.PC.OV ---
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 Accompanied by: Self / Same As Patient Allergies citalopram (Celexa) Allergy (Unknown, Verified 11/19/24 10:30) Unknown ropinirole Allergy (Unknown, Verified 11/19/24 10:30) increased numbness of feet, increased back pains Medication List - Last Reconciled 11/19/24 by Bill Vega MD cyclobenzaprine 10 mg PO TID PRN 30 days oxycodone-acetaminophen 10-325 mg Take 1 to 1.5 tablets orally QD PRN for severe pain 30 days tramadol 50 mg PO BID PRN 30 days Tobacco use date assessed: 11/19/24 Dental Screening Dental Screen Date: 11/19/24 Did you have a dental visit in the last 12 months?: No Did you have a dental problem in the last 6 months where you did not have access to dental care?: No Was dental information given to patient?: No HPI palpitations, PVCs (symptomatic) HPI Details Patient comes in today for her follow up visit States that she continues to experience on and off bouts of palpitations with transient dizziness and weakness She was referred to cardiology at her last visit and she was eventually seen by Dr. Ian tomas at [facility] about 2 months ago States that she subsequently had an echocardiogram and a 7-day Holter monitor done but she was only able to keep the monitor on for about 5 days due to an allergic reaction to the adhesive for the cardiac leads States that she was supposed to see cardiology today for her follow up visit but it coincided with her office visit here today and she decided to keep her appointment with us instead Relates that she somehow hurt her neck about 6 to 7 weeks ago while lifting a bucket full of water when her kitchen sink overflowed States that she has been experiencing significant neck pains since then and she can hardly sleep at night lately due to the neck pain - states that she cannot get her head into a comfortable position because of her increased neck pain Adds that her left hand now feels numb and tingly all the time and she is concerned about her neck/cervical spine, as she's had cervical disc herniation(s) seen on MRIs done in the past Relates (+) on and off headaches lately due to her increased neck pain She denies any exertional chest pains or increased SOB No nausea/vomiting, no abdominal pain No change in bowel habits noted FOR[facility]LY [facility], [facility] Medical History Dyslipidemia Right foot pain Disc disease, degenerative, cervical Obesity (BMI 30-39.9) Smoker Anxiety Insomnia Primary osteoarthritis of left knee Allergic rhinitis Palpitations Lumbar disc disease with radiculopathy Lumbar degenerative disc disease Surgical History No pertinent past surgical history Family History Father CVD (cardiovascular disease) Hypertension Mother Diabetes Cancer Social History Housing: House Alcohol intake: never Patient Tobacco Use Status: Current everyday Tobacco user Tobacco use type: Cigarette Cigarettes Per Day: 25 e-Cigarette/Vaping Use: Never Used Second Hand Smoke Exposure: Yes service: No Current occupational status: disabled Cognitive needs: No Hearing needs: No Vision needs: Yes (glasses) Questionnaire PHQ-9 Over the last 2 weeks, how often have you been bothered by any of the following problems? 1. Little interest or pleasure in doing things: not at all 2. Feeling down, depressed, or hopeless: not at all 3. Trouble falling or staying asleep, or sleeping too much: not at all 4. Feeling tired or having little energy: not at all 5. Poor appetite or overeating: not at all 6. Feeling bad about yourself - or that you are a failure or have let yourself or your family down: not at all 7. Trouble concentrating on things, such as reading the newspaper or watching television: not at all 8. Moving or speaking so slowly that other people could have noticed. Or the opposite - being so fidgety or restless that you have been moving around a lot more than usual: not at all 9. Thoughts that you would be better off or of hurting yourself in some way: not at all Total score: 0 Depression Screening Interpretation: Negative Depression Screening Done: Yes 16549 - PHQ-9 Billing: Yes Source: Developed by Drs. Liam Anthony, Dominique Fisher, Rusty Toribio and colleagues, with an educational fernando from [employer]. Thrive Questionnaire Date Thrive assessed: 11/19/24 I am a: Patient What is your living situation today?: I have a steady place to live Within the past 12 months, did the food you bought not last and you didn't have the money to get more?: Never true Within the past 12 months, did you worry whether your food would run out before you got money to buy more?: Never true Do you have trouble paying for medicines?: No Do you have trouble getting transportation to medical appointments?: No Do you have trouble paying your heating and electricity bill?: No Do you have trouble taking care of your child, family member or friend?: No Do you have trouble with day-to-day activities such as bathing, preparing meals, shopping, managing finances, etc.?: No Are you currently unemployed and looking for a job?: No Are you interested in more education?: No Please select the resources that you would like help with: None Currently or been in a relationship where the following occur: No concerns reported THRIVE Score: 0 AUDIT C Alcohol Use Questionnaire (AUDIT-C) 1. How often do you have a drink containing alcohol?: Never 3. How often do you have six or more drinks on one occasion?: Never Total Score: 0 Score Reviewed/Action Taken: Yes ARMANDO-7 AMB Questionnaire ARMANDO-7 Date ARMANDO - 7 assessed: 11/19/24 Feeling nervous, anxious, or on edge: 0 = Not at all Not being able to stop or control worryin = Not at all Worrying too much about different things: 0 = Not at all Trouble relaxin = Not at all Being so restless that it is hard to sit still: 0 = Not at all Becoming easily annoyed or irritable: 0 = Not at all Feeling afraid as if something awful might happen: 0 = Not at all Total ARMANDO-7 score (0-4 normal; 5-9 mild; 10-14 moderate; 15-21 severe): 0 Source: Developed by Dominique Gonzalez Kurt Kroenke and colleagues, with an educational fernando from [employer]. Review of Systems Const Denies chills, Reports difficulty sleeping (lately due to her increased neck pain), Reports fatigue, Denies fever(s) and Reports headache(s) (on and off lately) ENT Denies dysphagia, Reports dizziness (on and off, associated with her bouts of palpitations), Denies otalgia, Reports headache(s) (on and off lately), Reports neck pain (chronic - increased lately (see HPI)), Denies odynophagia and Denies sore throat Card Denies chest pain, Reports palpitations (recurrent bouts of palpitations (see HPI)) and Reports dyspnea on exertion (mild) Resp Denies chest congestion, Denies cough and Reports dyspnea on exertion (mild) GI Denies abdominal pain, Denies constipation, Denies dysphagia, Denies heartburn, Denies diarrhea, Denies nausea, Denies odynophagia and Denies vomiting Denies nocturia, Denies dysuria and Denies urinary urgency Musc Reports back pain (over the lumbar spine - chronic), Reports arthralgias (involving multiple joints, including left knee and ankles), Reports neck pain (chronic - increased lately (see HPI)), Reports numbness (left hand) and Reports tingling (in the left hand) Skin/Breast Denies rash Neuro Reports dizziness (on and off, associated with her bouts of palpitations), Reports headache(s) (on and off lately), Reports numbness (left hand) and Reports tingling (in the left hand) Psych Reports anxiety and Reports depression Endo Reports fatigue and Reports palpitations (recurrent bouts of palpitations (see HPI)) Physical exam (Primary Care) Vital Signs: Last Vital Signs BP 116/86 11/19/24 10:08 Oxygen Delivery Method Room Air 11/19/24 10:08 BMI result Body Mass Index 31.1 Tobacco/Smoking Status: Tobacco use Status Tobacco use date assessed 11/19/24 11/19/24 10:14 Patient Tobacco Use Status Current everyday Tobacco 11/19/24 10:14 Tobacco use type Cigarette 11/19/24 10:14 e-Cigarette/Vaping Use Never Used 11/19/24 10:14 PHQ-9: PHQ-9 Score PHQ-9: Total score 0 11/19/24 10:33 Depression Screening Interpretation: Negative Thrive Assessment: Date of Thrive Assessment Date Thrive assessed 11/19/24 11/19/24 10:14 Currently or been in a relationship where the following occur: No concerns reported Const General: no acute distress and alert HENMT Ears: TM's normal bilaterally and EAC's normal Throat: Yes posterior oropharynx normal and Yes tonsils normal (no TP congestion) Neck Neck: No lymphadenopathy and Yes tender Thyroid: Thyroid normal Resp Auscultation: clear to auscultation bilaterally, no rales and no wheezes Cardio Rate: regular rate Rhythm: abnormal rhythm (occasionally) with ectopic beats Heart sounds: no murmurs GI Palpation (GI): Soft to palpation and nontender Auscultation: normal bowel sounds General: Yes no CVA tenderness Back/Spine/Pelvis Back: no CVA tenderness Cervical Spine: cervical muscular tenderness (bilaterally), pain with cervical ROM and Cervical spine tenderness Thoracic/Lumbar Spine: lumbar spinal tenderness (chronic) Skin Rashes: no rashes Extrem General: Yes no clubbing, cyanosis or edema Left upper extremity: shoulder/upper arm Details: tenderness Location: of the A-C joint Right lower extremity: hip/thigh Details: tenderness Location: of the hip Left lower extremity: knee Details: tenderness Coding Level of Care Code Est Pt Level 4 (83835) Diagnoses Symptomatic PVCs I49.3 Lumbar disc disease with radiculopathy M51.16 Disc disease, degenerative, cervical M50.30 Primary osteoarthritis of left knee M17.12 Insomnia, unspecified type G47.00 Insomnia type: unspecified Anxiety F41.9 Smoker F17.200 Obesity (BMI 30-39.9) E66.9 Additional Codes PHQ-9 - 95749 - PHQ-9 Billing: Yes ([id number]) Assessment & Plan Assessment & Plan (1) Symptomatic PVCs: Code(s): I49.3 - Ventricular premature depolarization Category: Medical Plan: Patient went to the ER up at [facility] in [place] earlier this year on 05/04/2024 due to recurrent episodes of palpitations associated with dizziness She was noted to have (+) occasional PVCs on her heart monitor although her EKG done at the time did not show any acute changes - EKG was read as normal sinus rhythm at 94 beats per minute, with no acute ischemic changes and normal intervals Her cardiac enzymes reportedly came back normal, as well as the remainder of her labs done at the time As patient still does not have any secondary insurance and would like to avoid any unnecessary costs or expenses, we held off on ordering any additional labs at the time As she appeared to be quite symptomatic from PVCs, we referred her (per her request) to Dr. Juancarlos ASHER for further evaluation and management She ended up being seen by Dr. Sosa of [facility] and reportedly had echocardiogram and 7-day Holter monitor done but she was only able to keep the monitor on for about 5 days supposedly due to an allergic reaction to the adhesive for the cardiac leads States that she was scheduled to see cardiology today for her follow up visit but it coincided with her office visit here today and she decided to keep her appointment with us instead Have advised patient to try reaching out to the cardiology office to reschedule her follow up appointment [place] so we can proceed with her cardiac evaluation and management and get her recurrent symptomatic palpitations addressed appropriately (2) Lumbar disc disease with radiculopathy: Comment: Lumbar spine MRI done in 2019 showed multilevel lumbar spondylosis, worst at L4-L5 that has degenerative changes leading to moderate to severe canal stenosis and apparent mass effect on both traversing L5 nerve roots, greater on the right side Patient was referred to neurosurgery in 2018 but could not afford the co-pay for her visit, which was reportedly at $75 Code(s): M51.16 - Intervertebral disc disorders with radiculopathy, lumbar region Category: Medical Plan: Reinforced activity and weight-lifting restrictions Continue Tramadol 50 mg BID PRN and Oxycodone-Acetaminophen 10-325 mg 1 to 1.5 tablets QD only as needed for increased pain Patient currently still has NO secondary insurance coverage so she prefers not to do anything else in terms of work ups for her low back pain except continue on her current regimen/management at this time (3) Disc disease, degenerative, cervical: Comment: Cervical spine MRI done on 10/05/2004 showed a broad-based central disc herniation along to C4-C5 level causing a slight compression of the spinal cord MRI also showed a posterior disc bulging along the C5-C6 level causing slight compression of the spinal cord and a slight narrowing of the left neural foramen with no obvious disc herniation Code(s): M50.30 - Other cervical disc degeneration, unspecified cervical region Category: Medical Plan: Patient relates that she somehow hurt her neck about 6 to 7 weeks ago while lifting a bucket full of water when her kitchen sink overflowed States that she has been experiencing significant neck pains since then and she can hardly sleep at night lately due to the neck pain - states that she cannot get her head into a comfortable position because of her increased neck pain Adds that her left hand now feels numb and tingly all the time and she is concerned about her neck/cervical spine, as she's had cervical disc herniation(s) seen on MRIs done in the past - cervical spine MRI done on 10/05/2004 showed a broad-based central disc herniation along to C4-C5 level causing a slight compression of the spinal cord MRI also showed a posterior disc bulging along the C5-C6 level causing slight compression of the spinal cord and a slight narrowing of the left neural foramen with no obvious disc herniation Will send her to get updated cervical spine x-rays for now but advised her that a repeat MRI may be necessary as well Continue Cyclobenzaprine 10 mg TID PRN for now (4) Primary osteoarthritis of left knee: Comment: X-rays of the left knee done in October 2015 showed moderate degenerative changes Code(s): M17.12 - Unilateral primary osteoarthritis, left knee Category: Medical Plan: She was previously referred to [facility] in [place], per her request, for orthopedic consultation regarding her increasing/worsening knee pain a couple of years ago but she was never seen by orthopedics (5) Insomnia: Code(s): G47.00 - Insomnia, unspecified Category: Medical Qualifiers: Insomnia type: unspecified Qualified Code(s): G47.00 - Insomnia, unspecified Plan: Sleep hygiene reinforced (6) Anxiety: Code(s): F41.9 - Anxiety disorder, unspecified Category: Medical Plan: She used to take Lorazepam but states that she has been doing better lately and has not had to take her Rx in a couple of years now (7) Smoker: Code(s): F17.200 - Nicotine dependence, unspecified, uncomplicated Category: Social Hx Plan: She is counseled again on smoking cessation, especially in light of her recent cardiac symptoms (8) Obesity (BMI 30-39.9): Code(s): E66.9 - Obesity, unspecified Category: Medical Plan: Reinforced diet; exercise and weight loss are unrealistic due to her chronic pain Plan Follow up in 3 months Orders: Orders XR cervical spine min 6V Today M50.30 - Other cervical disc degeneration, unspecified cervical region
--- OUTSIDE RECORDS SUMMARY | 2024-11-19 10:47 | XMS_ITS | Clinical Summary ---
Author Organization 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 Active Active Problems Problem Noted Date Diagnosed Date Palpitations 08/12/2024 Assessment & Plan (08/12/2024 10:58 AM EDT): As mentioned we will get an echo both echo and MCT monitor will be done in [place] with a follow-up in [place] as the patient lives in [facility] Cardiac murmur, unspecified 08/12/2024 Assessment & Plan (08/12/2024 10:58 AM EDT): Again we will get an echo to evaluate this Ventricular premature depolarization 08/12/2024 Assessment & Plan (08/12/2024 10:58 AM EDT): We are going to get a 7-day MCT monitor to see what percentage of ectopic beats she has. Sometimes when the percentage is high we will try to suppress them with medications Social History Tobacco Use Types Packs/Day Years Used Date Smoking Tobacco: Every Day Cigarettes Smokeless Tobacco: Never Education Answer Date Recorded Are you interested in more education? Not on baron e 06/24/2024 Are you concerned about learning? Not on file 06/24/2024 No 06/24/2024 No 06/24/2024 Digital Access Answer Date Recorded No 06/24/2024 No 06/24/2024 Reliable internet access at home? Not on file 06/24/2024 Device with a working camera? Not on file Comments Unknown Sex and Gender Information Value Date Recorded Sex Assigned at Not on file Legal Sex Female 2:33 PM EST Gender Identity Not on file Sexual Orientation Not on file Last Filed Vital Signs Vital Sign Reading Time Taken Comments Blood Pressure 160/110 08/12/2024 10:39 AM EDT Pulse 71 08/12/2024 10:39 AM EDT Temperature - - Respiratory Rate - - Oxygen Saturation 98% 08/12/2024 10:39 AM EDT Inhaled Oxygen Concentration - - Weight 74.4 kg (164 lb) 08/12/2024 10:39 AM EDT Height 180.3 cm (5' 11 ) 08/12/2024 10:39 AM EDT Body Mass Index 22.87 08/12/2024 10:39 AM EDT Plan of Treatment Health Maintenance Due Date Last Done Comments Adult Td,Tdap Booster 1966 LIPID PANEL 1966 DEPRESSION SCREENING 1978 SMOKING Hx and SMOKELESS TOB ACCO SCREENING 1979 HEPATITIS C SCREENING 1984 HIV ONE-TIME SCREENING (18-6 5 YEARS) 1984 PNEUMOCOCCAL VACCINES (50+ y ears) (1 of 2 - PCV) 1985 PAP SMEAR 1987 MAMMOGRAM 2006 COLOGUARD 2011 COLONOSCOPY 2011 COLORECTAL CANCER SCREENING 2011 FIT TEST 2011 FOBT 2011 SIGMOIDOSCOPY 2011 VIRTUAL COLONOSCOPY 2011 ZOSTER VACCINES (1 of 2) 2016 COVID-19 VACCINE ( - 2023-2 5 season) 2023 HEPATITIS A VACCINES Aged Out No long er eligible based on patient's age to complete this topic HIB VACCINES Aged Out No longer eligi ble based on patient's age to complete this topic MENINGOCOCCAL VACCINES (ACWY) Aged Out No longer eligible based on patient's age to complete this topic MENINGOCOCCAL VACCINES (B) Aged Out N o longer eligible based on patient's age to complete this topic Medical Devices Not on file Insurance MEDICARE PART A & B MEDICARE PART A & B MEDICARE PART A & B MEDICARE PART A & B MEDICARE PART A & B MEDICARE PART A & B Care Teams [employer] Relationship Specialty Start Date End Date Bill Vega MD [address] [place] [address] [place] [address] PCP - General Internal Medicine 06/09/24 Additional Source Comments The information contained in this document represents components of the legal health record. It is not the complete legal health record.[facility]
== END 2024-11-19 10:59 | disposition home or self-care (01) ==
PROVIDERS: PCP Internal Medicine; Visit Provider Internal Medicine
DX: I49.3 Ventricular premature depolarization (principal); E66.9 Obesity, unspecified; Z68.31 Body mass index [BMI] 31.0-31.9, adult; M51.16 Intervertebral disc disorders with radiculopathy, lumbar region; M50.30 Other cervical disc degeneration, unspecified cervical region; M17.12 Unilateral primary osteoarthritis, left knee; G47.00 Insomnia, unspecified; F41.9 Anxiety disorder, unspecified; F17.200 Nicotine dependence, unspecified, uncomplicated

== ENCOUNTER → 2024-11-19 10:05 | Outpatient (BNVA) | payer MEDICARE, SELFPAY | PROVIDERS: PCP Internal Medicine; Visit Provider Internal Medicine | DX: I49.3 Ventricular premature depolarization (principal); M51.16 Intervertebral disc disorders with radiculopathy, lumbar region; M17.12 Unilateral primary osteoarthritis, left knee; F41.9 Anxiety disorder, unspecified; E66.9 Obesity, unspecified; Z68.31 Body mass index [BMI] 31.0-31.9, adult; F17.200 Nicotine dependence, unspecified, uncomplicated; Z71.3 Dietary counseling and surveillance; Z71.6 Tobacco abuse counseling | CPT/HCPCS: 96127; 99212 ==

== ENCOUNTER 2025-03-01 14:49 | Outpatient (AMB) | payer MEDICARE, SELFPAY ==
[2025-03-01 15:32] VITALS: BP 118/78; BMI 32.0
--- NOTE | 2025-03-01 15:32 | A.OFFPC_ITS ---
Vital Signs 03/01/25 15:32 Height 5 ft 11 in Weight 229 lb 4 oz BMI 32.0 BP 118/78 Blood Pressure Location Lt brachial Position Sitting Pulse Source Pulse Oximeter Oxygen Delivery Method Room Air Intake Visit Reasons: Follow Up Youth Leader Required: No Accompanied by: Self / Same As Patient Allergies citalopram (Celexa) Allergy (Unknown, Verified 03/01/25 15:43) Unknown ropinirole Allergy (Unknown, Verified 03/01/25 15:43) increased numbness of feet, increased back pains Medication List - Last Reconciled 03/01/25 by Bill Vega MD cyclobenzaprine 10 mg PO TID PRN 30 days oxycodone-acetaminophen 10-325 mg Take 1 to 1.5 tablets orally QD PRN for severe pain 30 days tramadol 50 mg PO BID PRN 30 days Tobacco use date assessed: 03/01/25 Dental Screening Dental Screen Date: 03/01/25 Did you have a dental visit in the last 12 months?: No Did you have a dental problem in the last 6 months where you did not have access to dental care?: No Was dental information given to patient?: No HPI Follow Up HPI Details - The patient is a 59-year-old individua l presenting for a follow-up of her chronic issues and also to discuss her recent cardiac testing as well as to help manage her sinus symptoms. - Regarding the patient's history of heidi st pain, a cardiac evaluation was recently performed by cardiology in [place], which included an EKG, an echocardiogram, and a 7-day Holter monitor. - The patient reports wearing the monito r for only five days due to developing a skin rash from the device. - The results from these tests have not yet been received, and the patient has a follow-up appointment with the volunteer recruitment coordinator on March 17. - The patient reports that she paid $457 out of pocket for these cardiac tests. - The patient also reports sinus issues (congestion, sinus pain and headaches) that began a few weeks ago, with persistent sinus pressure and bloody nasal discharge. - The patient self-treated by taking eig ht leftover amoxicillin pills from a [id number] prescription, which did not resolve the symptoms. - The patient notes that sinus issues singleton ve worsened since having had a COVID-19 infection. She denies any fever or sore throat - Additionally, the patient has chronic neck pain, which she described as calming down but is exacerbated by the recent cold and rainy weather, consistent with arthritis. She also continues to experience increased pain over her lower back and states that her current Rx help keep her pain manageable but there are some days when even those do not help much PFSH Medical History Dyslipidemia Right foot pain Disc disease, degenerative, cervical Obesity (BMI 30-39.9) Smoker Anxiety Insomnia Primary osteoarthritis of left knee Allergic rhinitis Palpitations Lumbar disc disease with radiculopathy Lumbar degenerative disc disease Surgical History No pertinent past surgical history Family History Father CVD (cardiovascular disease) Hypertension Mother Diabetes Cancer Social History Housing: House Alcohol intake: never Patient Tobacco Use Status: Current everyday Tobacco user Tobacco use type: Cigarette Cigarettes Per Day: 25 e-Cigarette/Vaping Use: Never Used Second Hand Smoke Exposure: Yes service: No Current occupational status: disabled Cognitive needs: No Hearing needs: No Vision needs: Yes (glasses) Questionnaire PHQ-9 Over the last 2 weeks, how often have you been bothered by any of the following problems? 1. Little interest or pleasure in doing things: not at all 2. Feeling down, depressed, or hopeless: not at all 3. Trouble falling or staying asleep, or sleeping too much: not at all 4. Feeling tired or having little energy: not at all 5. Poor appetite or overeating: not at all 6. Feeling bad about yourself - or that you are a failure or have let yourself or your family down: not at all 7. Trouble concentrating on things, such as reading the newspaper or watching television: not at all 8. Moving or speaking so slowly that other people could have noticed. Or the opposite - being so fidgety or restless that you have been moving around a lot more than usual: not at all 9. Thoughts that you would be better off or of hurting yourself in some way: not at all Total score: 0 Depression Screening Interpretation: Positive Depression Screening Follow-up: Existing condition and Declines treatment Depression Screening Done: Yes 36174 - PHQ-9 Billing: Yes Source: Developed by Drs. Liam Anthony, Dominique Fisher, Rusty Toribio and colleagues, with an educational fernando from [employer]. Thrive Questionnaire Date Thrive assessed: 03/01/25 I am a: Patient What is your living situation today?: I have a steady place to live Within the past 12 months, did the food you bought not last and you didn't have the money to get more?: Never true Within the past 12 months, did you worry whether your food would run out before you got money to buy more?: Never true Do you have trouble paying for medicines?: No Do you have trouble getting transportation to medical appointments?: No Do you have trouble paying your heating and electricity bill?: No Do you have trouble taking care of your child, family member or friend?: No Do you have trouble with day-to-day activities such as bathing, preparing meals, shopping, managing finances, etc.?: I choose not to answer this question Are you currently unemployed and looking for a job?: No Are you interested in more education?: No Please select the resources that you would like help with: None Currently or been in a relationship where the following occur: No concerns reported THRIVE Score: 0 AUDIT C Alcohol Use Questionnaire (AUDIT-C) 1. How often do you have a drink containing alcohol?: Never 3. How often do you have six or more drinks on one occasion?: Never Total Score: 0 Score Reviewed/Action Taken: Yes ARMANDO-7 AMB Questionnaire ARMANDO-7 Date ARMANDO - 7 assessed: 03/01/25 Feeling nervous, anxious, or on edge: 0 = Not at all Not being able to stop or control worryin = Not at all Worrying too much about different things: 0 = Not at all Trouble relaxin = Not at all Being so restless that it is hard to sit still: 0 = Not at all Becoming easily annoyed or irritable: 0 = Not at all Feeling afraid as if something awful might happen: 0 = Not at all Total ARMANDO-7 score (0-4 normal; 5-9 mild; 10-14 moderate; 15-21 severe): 0 Source: Developed by Drs. Liam Anthony, Dominique Fisher, Rusty Toribio and colleagues, with an educational fernando from [employer]. Review of Systems Const Denies chills, Reports difficulty sleeping (lately due to her increased neck pain), Reports fatigue, Denies fever(s) and Reports headache(s) (on and off ) ENT Denies dysphagia, Reports dizziness (on and off, associated with her bouts of palpitations), Denies otalgia, Reports headache(s) (on and off ), Reports nasal congestion, Reports nasal discharge ((+) blood at times), Reports neck pain (chronic - increased lately (see HPI)), Denies odynophagia, Reports sinus pain, Reports sinus pressure and Denies sore throat Card Denies chest pain, Reports palpitations (recurrent bouts of palpitations (see HPI)) and Reports dyspnea on exertion (mild) Resp Denies chest congestion, Denies cough and Reports dyspnea on exertion (mild) GI Denies abdominal pain, Denies constipation, Denies dysphagia, Denies heartburn, Denies diarrhea, Denies nausea, Denies odynophagia and Denies vomiting Denies nocturia, Denies dysuria and Denies urinary urgency Musc Reports back pain (over the lumbar spine - chronic), Reports arthralgias (involving multiple joints, including left knee and ankles), Reports neck pain (chronic - increased lately (see HPI)), Reports numbness (in the left hand) and Reports tingling (in the left hand) Skin/Breast Denies rash Neuro Reports dizziness (on and off, associated with her bouts of palpitations), Re ports headache(s) (on and off ), Reports numbness (in the left hand) and Reports tingling (in the left hand) Psych Reports anxiety and Reports depression Endo Reports fatigue and Reports palpitations (recurrent bouts of palpitations (see HPI)) Physical exam (Primary Care) Vital Signs: Last Vital Signs BP 118/78 03/01/25 15:32 Oxygen Delivery Method Room Air 03/01/25 15:32 BMI result Body Mass Index 32.0 Tobacco/Smoking Status: Tobacco use Status Tobacco use date assessed 03/01/25 03/01/25 15:34 Patient Tobacco Use Status Current everyday Tobacco 03/01/25 15:34 Tobacco use type Cigarette 03/01/25 15:34 e-Cigarette/Vaping Use Never Used 03/01/25 15:34 PHQ-9: PHQ-9 Score PHQ-9: Total score 0 03/06/25 13:29 Depression Screening Interpretation: Positive Depression Screening Follow-up: Existing condition and Declines treatment Thrive Assessment: Date of Thrive Assessment Date Thrive assessed 03/01/25 03/01/25 15:34 Currently or been in a relationship where the following occur: No concerns reported Const General: no acute distress and alert HENMT Ears: TM's normal bilaterally and EAC's normal Face and sinus: Yes sinus tenderness Throat: Yes posterior oropharynx normal, Yes tonsils normal (no TP congestion) and Yes postnasal drainage Neck Neck: No lymphadenopathy and Yes tender Thyroid: Thyroid normal Resp Auscultation: clear to auscultation bilaterally, no rales and no wheezes Cardio Rate: regular rate Rhythm: abnormal rhythm (occasionally) with ectopic beats Heart sounds: no murmurs GI Palpation (GI): Soft to palpation and nontender Auscultation: normal bowel sounds General: Yes no CVA tenderness Back/Spine/Pelvis Back: no CVA tenderness Cervical Spine: cervical muscular tenderness (bilaterally), pain with cervical ROM and Cervical spine tenderness Thoracic/Lumbar Spine: lumbar spinal tenderness (chronic) Skin Rashes: no rashes Extrem General: Yes no clubbing, cyanosis or edema Left upper extremity: shoulder/upper arm Details: tenderness Location: of the A- C joint Right lower extremity: hip/thigh Details: tenderness Location: of the hip Left lower extremity: knee Details: tenderness Coding Level of Care Code Est Pt Level 4 (99665) Diagnoses Symptomatic PVCs I49.3 Lumbar disc disease with radiculopathy M51.16 Disc disease, degenerative, cervical M50.30 Primary osteoarthritis of left knee M17.12 Acute non-recurrent sinusitis, unspecified location J01.90 Sinusitis location: unspecified location Chronicity: acute Recurrence: non-recurrent Insomnia, unspecified type G47.00 Insomnia type: unspecified Anxiety F41.9 Smoker F17.200 Obesity (BMI 30-39.9) E66.9 Additional Codes PHQ-9 - 96282 - PHQ-9 Billing: Yes ([id number]) Assessment & Plan Assessment & Plan (1) Symptomatic PVCs: Code(s): I49.3 - Ventricular premature depolarization Category: Medical Plan: Patient went to the ER up at [facility] in [place] earlier this year on 05/04/2024 due to recurrent episodes of palpitations associated with dizziness She was noted to have (+) occasional PVCs on her heart monitor although her EKG done at the time did not show any acute changes - EKG was read as normal sinus rhythm at 94 beats per minute, with no acute ischemic changes and normal intervals Her cardiac enzymes reportedly came back normal, as well as the remainder of her labs done at the time As patient still does not have any secondary insurance and wanted to avoid any unnecessary costs or expenses, we held off on ordering any additional labs at the time Because she appeared to be quite symptomatic from her PVCs, we referred her (per her request) to Dr. Juancarlos ASHER for further evaluation and management She ended up being seen by Dr. Sosa of [facility] and reportedly had echocardiogram and 7-day Holter monitor done but she was only able to keep the monitor on for about 5 days supposedly due to an allergic reaction to the adhesive for the cardiac leads States that she was scheduled to see cardiology back in November (2024) for her follow up visit but it coincided with her office visit here today and she decided to keep her appointment with us instead She is now scheduled to be seen by cardiology on 03/17/2025 to discuss her recent test results and for further management of her cardiac symptoms (2) Lumbar disc disease with radiculopathy: Comment: Lumbar spine MRI done in 2019 showed multilevel lumbar spondylosis, worst at L4- L5 that has degenerative changes leading to moderate to severe canal stenosis and apparent mass effect on both traversing L5 nerve roots, greater on the right side Patient was referred to neurosurgery in 2018 but could not afford the co-pay for her visit, which was reportedly at $75 Code(s): M51.16 - Intervertebral disc disorders with radiculopathy, lumbar region Category: Medical Plan: Reinforced activity and weight-lifting restrictions Continue Tramadol 50 mg BID PRN and Oxycodone-Acetaminophen 10-325 mg 1 to 1.5 tablets QD only as needed for increased pain Patient currently still has NO secondary insurance coverage so she prefers not to do anything else in terms of work ups for her low back pain except continue on her current regimen/management at this time (3) Disc disease, degenerative, cervical: Comment: Cervical spine MRI done on 10/05/2004 showed a broad-based central disc herniation along to C4-C5 level causing a slight compression of the spinal cord MRI also showed a posterior disc bulging along the C5-C6 level causing slight compression of the spinal cord and a slight narrowing of the left neural foramen with no obvious disc herniation Code(s): M50.30 - Other cervical disc degeneration, unspecified cervical region Category: Medical Plan: Patient relates that she somehow hurt her neck a few months ago while lifting a bucket full of water when her kitchen sink overflowed States that she has been experiencing significant neck pains since then and she can hardly sleep at night lately due to the neck pain - states that she cannot get her head into a comfortable position because of her increased neck pain Adds that her left hand now feels numb and tingly all the time and she is concerned about her neck/cervical spine, as she's had cervical disc herniation(s) seen on MRIs done in the past - cervical spine MRI done on 10/05/2004 showed a broad-based central disc herniation along to C4-C5 level causing a slight compression of the spinal cord MRI also showed a posterior disc bulging along the C5-C6 level causing slight compression of the spinal cord and a slight narrowing of the left neural foramen with no obvious disc herniation Will send her to get updated cervical spine x-rays but it does not look like she got them done Continue Cyclobenzaprine 10 mg TID PRN for now (4) Primary osteoarthritis of left knee: Comment: X-rays of the left knee done in October 2015 showed moderate degenerative changes Code(s): M17.12 - Unilateral primary osteoarthritis, left knee Category: Medical Plan: She was previously referred to [facility] in [place], per her request, for orthopedic consultation regarding her increasing/worsening knee pain a couple of years ago but she was never seen by orthopedics (5) Sinusitis: Code(s): J32.9 - Chronic sinusitis, unspecified Category: Medical Qualifiers: Sinusitis location: unspecified location Chronicity: acute Recurrence: non-recurrent Qualified Code(s): J01.90 - Acute sinusitis, unspecified Plan: Will start patient on Amoxicillin 875 mg BID x 10 days (6) Insomnia: Code(s): G47.00 - Insomnia, unspecified Category: Medical Qualifiers: Insomnia type: unspecified Qualified Code(s): G47.00 - Insomnia, unspecified Plan: Sleep hygiene reinforced (7) Anxiety: Code(s): F41.9 - Anxiety disorder, unspecified Category: Medical Plan: She used to take Lorazepam but states that she has been doing better lately and has not had to take her Rx in a couple of years now (8) Smoker: Code(s): F17.200 - Nicotine dependence, unspecified, uncomplicated Category: Social Hx Plan: She is counseled again on complete smoking cessation, especially in light of her recent cardiac symptoms (9) Obesity (BMI 30-39.9): Code(s): E66.9 - Obesity, unspecified Category: Medical Plan: Reinforced diet; exercise and weight loss are unrealistic due to her chronic pain Plan Follow up in 3 months Medications: New amoxicillin 875 mg PO BID 20 tabs 0RF 10 days
--- OUTSIDE RECORDS SUMMARY | 2025-03-01 19:38 | XMS_ITS | Clinical Summary ---
Author Organization [facility] Address [address] [place] [phone] Phone Care Team Providers Care Human Factors Engineer Name Role Phone Bill Vega MD Primary Care Provider [phone] Allergies Active Allergy Reactions Criticality Noted Date [...] and MCT monitor will be done in [place] with a follow-up in [place] as the patient lives in [facility] Cardiac murmur, unspecified 08/12/2024 Assessment & [...] 2011 ZOSTER VACCINES (1 of 2) 2016 INFLUENZA VACCINE (#1) 2024 COVID-19 VACCINE (1 - 2024-2 6 season) 2024 RSV VACCINE (1 - 1-dose 75+ series) 2041 HEPATITIS A VACCINES Aged Out No long [...] MEDICARE PART A & B Care Teams Human Factors Engineer Relationship Specialty Start Date End Date Bill Vega MD [address] [place] [address] [place] [id number] PCP - General Internal Medicine 06/09/24 Additional Source Comments The information contained in this document represents components of the legal health record. It is not the complete legal health record.[facility]
== END 2025-03-01 16:24 | disposition home or self-care (01) ==
LOC: HO.HMCH 14:50
PROVIDERS: PCP Internal Medicine; Visit Provider Internal Medicine
DX: I49.3 Ventricular premature depolarization (principal); M51.16 Intervertebral disc disorders with radiculopathy, lumbar region; E66.9 Obesity, unspecified; Z68.32 Body mass index [BMI] 32.0-32.9, adult; M50.30 Other cervical disc degeneration, unspecified cervical region; M17.12 Unilateral primary osteoarthritis, left knee; J01.90 Acute sinusitis, unspecified; G47.00 Insomnia, unspecified; F41.9 Anxiety disorder, unspecified; F17.200 Nicotine dependence, unspecified, uncomplicated

== ENCOUNTER → 2025-03-01 14:49 | Outpatient (BNVA) | payer MEDICARE, SELFPAY | PROVIDERS: PCP Internal Medicine; Visit Provider Internal Medicine | DX: I49.3 Ventricular premature depolarization (principal); M51.16 Intervertebral disc disorders with radiculopathy, lumbar region; M50.30 Other cervical disc degeneration, unspecified cervical region; M17.12 Unilateral primary osteoarthritis, left knee; J01.90 Acute sinusitis, unspecified; G47.00 Insomnia, unspecified; F41.9 Anxiety disorder, unspecified; E66.9 Obesity, unspecified; Z68.32 Body mass index [BMI] 32.0-32.9, adult; F17.200 Nicotine dependence, unspecified, uncomplicated; Z71.3 Dietary counseling and surveillance; Z71.6 Tobacco abuse counseling | CPT/HCPCS: 96127; 99212 ==